=== PATIENT | female | born 1935 | race African-American/Black ===

== ENCOUNTER 2021-03-06 10:05 | Inpatient (IN) | payer MEDICARE, BC, SELFPAY ==
[2021-03-06] VITALS (9 sets, daily range): BP systolic 84–167; BP diastolic 44–87; PULSE 69–98; RESP 15–20; TEMP 26.6–36.6; O2SAT 94–97; BMI 38.7
--- NOTE | ~2021-03-06 | XR_ITS ---
EXAMINATION: XR CHEST CLINICAL INFORMATION: Dyspnea COMPARISON: Previous chest x-ray December 2013 TECHNIQUE: Frontal view of the chest was obtained. FINDINGS: The cardiac and mediastinal contours are stable. Post-CABG changes are seen. Hilar and mediastinal contours are unremarkable. There is question of a mild peripheral increased interstitial markings questionable for interstitial pulmonary edema. The lungs are otherwise clear. There is no pleural effusion or pneumothorax. There are degenerative changes of the spine. XR/XR chest 1V IMPRESSION: Post-CABG changes. Question mild interstitial pulmonary edema.
--- NOTE | ~2021-03-06 | CT_ITS ---
EXAMINATION: CT ABDOMEN AND PELVIS WITH CONTRAST CLINICAL INFORMATION: Bloody stool. Question rectal mass. COMPARISON: None TECHNIQUE: Multidetector volumetric images were obtained from the superior aspect of the liver through the pubic symphysis following administration 85 mL of Omnipaque 350 intravenous contrast. Sagittal and coronal reformatted images were obtained on the technologist's workstation. Oral contrast: Yes This CT examination was performed using dose optimization techniques as appropriate, variously including the following: *Automated exposure control *Adjustment of mA and/or kV according to patient size (this includes techniques or standardized protocols for targeted exams where dose is matched to indication/reason for exam; i.e. extremities or head) *Use of iterative reconstruction technique DLP: 727 mGy-cm FINDINGS: LUNG BASES: There are tiny bilateral pleural effusions. The heart is enlarged. LIVER, GALLBLADDER, AND BILIARY TREE: The liver is normal in size, shape, and attenuation. No focal hepatic lesion or biliary ductal dilatation is present. The gallbladder has been removed. PANCREAS: There is fatty infiltration of the pancreas. SPLEEN: Unremarkable. ADRENAL GLANDS: Unremarkable. KIDNEYS AND URETERS: There is a 3 cm cyst in the lower pole of the right kidney. The kidneys are otherwise unremarkable. BLADDER: Unremarkable. GASTROINTESTINAL TRACT: There is severe diverticulosis of the colon. No evidence of diverticulitis is seen. The small and large bowel is otherwise unremarkable. The appendix is not identified. No rectal mass is appreciated by CT scan. The stomach is not optimally distended. ABDOMINAL WALL: No significant hernia is appreciated. LYMPH NODES: There are small retroperitoneal lymph nodes. No enlarged lymph nodes are seen. VASCULAR: There is evidence of atherosclerotic disease. No aneurysm is seen. PELVIC VISCERA: Uterus appears to have been removed. No pelvic mass is seen. OSSEOUS STRUCTURES: There are degenerative changes of the spine. CT/CT abdomen pelvis w con IMPRESSION: Severe diverticulosis of the colon. No evidence of diverticulitis. No rectal mass appreciated by CT scanning. Right renal cyst.
--- NOTE | 2021-03-06 10:24 | ECG_ITS ---
Test Reason : WEAKNESS Blood Pressure : / mmHG Vent. 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
--- NOTE | 2021-03-06 10:34 | ED_ITS ---
HPI - Weakness General Chief complaint: Weakness Stated complaint: weakness, sob Time Seen by Provider: 03/06/21 10:22 Source: patient and EMS Mode of arrival: EMS Limitations: no limitations History of Present Illness HPI Narrative: 85 yo female hx of afib on xarelto, CAD s/p CABG, HTN, HPL, DM here with weakness and cough productive in nature x 1 week, has a sensation of a dull ache in her chest as well, [facility] to [facility] so EMS was called given 250cc en route, patient notes she has no energy and cannot do her activities, has had intermittent bouts of brbpr but no workup at this t cassie, has not had colonoscopy in years MD Complaint: generalized weakness and lack of energy Onset (ago): week(s) (1) Duration: constant Location: generalized Migration: none Severity: moderate Quality: aching and dull Relieving factors: none Exacerbating factors: movement and exertion Associated symptoms: chest pain, loss of appetite and other (productive cough) Related Data Home Medications Medication Instructions Recorded Confirmed atorvastatin 1 tab PO DAILY 03/06/21 03/06/21 furosemide 1 tab PO BID 03/06/21 03/06/21 metformin 1 tab PO DAILY 03/06/21 03/06/21 metoprolol succinate 1 tab PO DAILY 03/06/21 03/06/21 rivaroxaban [Xarelto] 1 tab PO BEDTIME 03/06/21 03/06/21 sertraline 1 tab PO BID 03/06/21 03/06/21 Allergies Allergy/AdvReac Type Severity Reaction Status Date / Time aspirin [ASA] Allergy Mild HIVES Unverified 07/27/20 18:40 codeine [CODEINE] AdvReac Mild VOMIT Unverified 07/27/20 18:40 Review of Systems Review of Systems: Constitutional : No Weight loss, No Fever, No Chills, pos Fatigue, pos Malaise ENT/Mouth : No sore throat, No Rhinorrhea Eyes: No Eye Pain, No Swelling, No Redness Cardiovascular : pos Chest Pain, pos SOB, No Dyspnea on Exertion, No Orthopnea, pos Edema, No Palpitations Respiratory : pos Cough, pos Sputum, No Wheezing Gastrointestinal : No Nausea, No Vomiting, No Diarrhea, No Constipation, No abdominal Pain, pos Hematochezia, No Melena Genitourinary : No Dysuria, No Urinary Frequency, No Hematuria, Musculoskeletal : No joint pain, No Myalgias, No Joint Swelling Skin : No Skin Lesions, No rash Neuro : pos Weakness, No Numbness, No Dizziness, No Headache Psych : No Anxiety/Panic, No Depression Heme/Lymph: No Bruising, No Bleeding,No Lymphadenopathy Endocrine : No Polyuria, No Polydipsia All other systems reviewed and are negative COUNTS INCLUDE 234 BEDS AT THE [facility] Past Medical History Attestation statement: The following information was validated with the patient. Medical History (Updated 03/06/21 @ 15:57 by Ivanna Martin DO) Atrial fibrillation Coronary artery disease Diabetes mellitus type 1 Hyperlipidemia Hypertension Surgical History (Updated 03/06/21 @ 10:28 by Nayla Swain) H/O coronary artery bypass surgery Social History Social History (Updated 03/06/21 @ 10:36 by Ivanna Martin DO) Smoking Status: Never smoker Use of substances other than those prescribed or required for medical reasons: No Advance Directives: No Advance Directives Information Provided: No Physical Exam Vital Signs: Vital Signs: Last Vital Signs Temp 98 F 03/06/21 15:53 Pulse 74 03/06/21 15:53 Resp 18 03/06/21 15:53 BP 143/65 H 03/06/21 15:53 Pulse Ox 96 03/06/21 15:53 Body Mass Index 38.7 Appearance: Alert. Oriented X3. No acute distress. Eyes: Pupils equal, round and reactive to light. pale conjunctiva ENT: Pharynx normal. Neck: Normal inspection. Neck supple. CVS: Normal heart rate and rhythm. Pulses normal. Respiratory: No respiratory distress. Breath sounds rales noted in bilateral bases but no distress Abdomen: Soft and nontender. Rectal: brown stool but irregularity felt internally Skin: Skin warm and dry. pale skin color. Normal skin turgor. Extremities: piitting 1+ lower extremity edema bilaterally. No calf ttp Neuro: Oriented X 3. No motor deficit. No sensory deficit. Course Course Course Narrative: repeat BP 109/44 will hold significant IVF repeat MAP stable initial BP could be error given irregularity of rectal exam and reports of tenesmus will obtain CT scan to r/o mass H/H in Nov 2020 - hgb 9.1 and Hct 30 has had intremittent bouts of brbpr but no workup edema on CXR, BNP elevated, BP normalized very gentle lasix at this time to help diurese given HCt 29 and hx of CAD s/p CABG will transfuse 1UPRBC then repeat lasix admit for anemia and CHF MDM - Weakness MDM Narrative Medical decision making narrative: 85 yo female s/p CABG x 2 remotely, afib on xarelto, HTN, anemia comes in with weakness, shortness of breath, vague chest pain cannot participate [facility] but was too weak to get up so 911 was called the patient also notes bouts of hematochezia but none this week and has not had a colonoscopy in years, at this time ? worsening anemia, vs CHF as she notes she is short of breath, fatigued and appears more edematous. Will need records from [facility] last visit, labs, IV lasix, EKG, CXR, guiac study possible blood transfusion dispo per results possible admission Lab Data Result diagrams: 03/06/21 11:01 03/06/21 11:01 Labs: Lab Results 03/06/21 03/06/21 03/06/21 Range/Units 11:01 11:01 11:01 WBC 6.2 (4.8-10.8) X10*3/uL RBC 3.53 L (4.20-5.50) X10*6/uL Hgb 8.6 L (12.0-16.0) g/dl Hct 29.2 L (37-47) % MCV 82.7 (80-98) fL MCH 24.4 L (27.0-33.0) pg MCHC 29.5 L (31.0-35.0) g/dl RDW 17.0 H (11.0-16.0) % Plt Count 243 (160-400) X10*3/uL MPV 8.6 L (9.4-12.3) fL Immature Gran % (Auto) 0.5 H (0.0-0.4) % Neut % (Auto) 67.3 (45-73) % Lymph % (Auto) 23.1 (20-40) % [place] % (Auto) 6.7 (2-11) % Eos % (Auto) 2.1 (0-4) % Baso % (Auto) 0.3 (0-2) % Lymph # (Auto) 1.4 (1.2-4.9) X10*3/uL [place] # (Auto) 0.4 (0.1-1.2) X10*3/uL Eos # (Auto) 0.1 (0.0-0.4) X10*3/uL Baso # (Auto) 0.0 (0.0-0.2) X10*3/uL Abs Immat Gran (auto) 0.03 (0.00-0.03) X10*3/uL Absolute Neuts (auto) 4.1 (2.0-8.3) X10*3/uL Absolute Nucleated RBC 0.000 (0.0-0.012) X10*3/uL Nucleated RBC % (auto) 0.0 (0.0-0.2) /100WBC PT 15.3 H (10.8-13.0) SEC INR 1.3 H (0.9-1.1) APTT 36.6 (24.1-38.0) SEC Sodium 142 (135-145) mmol/L Potassium 3.4 (3.3-5.1) mmol/L Chloride 108 (96-108) mmol/L Carbon Dioxide 24 (22-29) mmol/L Anion Gap 13 (12-20) BUN 13 (9-16) mg/dL Creatinine 0.79 (0.5-1.4) mg/dL Estim Creat Clear Calc 48.6 Estimated GFR > 60 Random Glucose 127 H (60-115) mg/dL Calcium 8.7 (8.4-10.2) mg/dL Magnesium 1.8 (1.6-2.6) mg/dL Total Bilirubin 0.5 (0.0-1.0) mg/dL Direct Bilirubin 0.3 (0.0-0.5) mg/dL AST 50 H (5-31) U/L ALT 22 (0-31) U/L Alkaline Phosphatase 111 (39-117) U/L Troponin I High Sens (<3.5-17.0) ng/L B-Natriuretic Peptide (<100) pg/mL Total Protein 7.4 (6.5-8.0) g/dL Albumin 3.9 (3.5-5.0) g/dL Lipase 11 (8-78) U/L Stool Occult Blood (NEGATIVE) COVID-19 ([facility]) (Negative) COVID-19 Clin [facility] Blood Type Antibody Screen Crossmatch 03/06/21 03/06/21 03/06/21 Range/Units 11:01 11:01 11:02 WBC (4.8-10.8) X10*3/uL RBC (4.20-5.50) X10*6/uL Hgb (12.0-16.0) g/dl Hct (37-47) % MCV (80-98) fL MCH (27.0-33.0) pg MCHC (31.0-35.0) g/dl RDW (11.0-16.0) % Plt Count (160-400) X10*3/uL MPV (9.4-12.3) fL Immature Gran % (Auto) (0.0-0.4) % Neut % (Auto) (45-73) % Lymph % (Auto) (20-40) % [place] % (Auto) (2-11) % Eos % (Auto) (0-4) % Baso % (Auto) (0-2) % Lymph # (Auto) (1.2-4.9) X10*3/uL [place] # (Auto) (0.1-1.2) X10*3/uL Eos # (Auto) (0.0-0.4) X10*3/uL Baso # (Auto) (0.0-0.2) X10*3/uL Abs Immat Gran (auto) (0.00-0.03) X10*3/uL Absolute Neuts (auto) (2.0-8.3) X10*3/uL Absolute Nucleated RBC (0.0-0.012) X10*3/uL Nucleated RBC % (auto) (0.0-0.2) /100WBC PT (10.8-13.0) SEC INR (0.9-1.1) APTT (24.1-38.0) SEC Sodium (135-145) mmol/L Potassium (3.3-5.1) mmol/L Chloride (96-108) mmol/L Carbon Dioxide (22-29) mmol/L Anion Gap (12-20) BUN (9-16) mg/dL Creatinine (0.5-1.4) mg/dL Estim Creat Clear Calc Estimated GFR Random Glucose (60-115) mg/dL Calcium (8.4-10.2) mg/dL Magnesium (1.6-2.6) mg/dL Total Bilirubin (0.0-1.0) mg/dL Direct Bilirubin (0.0-0.5) mg/dL AST (5-31) U/L ALT (0-31) U/L Alkaline Phosphatase (39-117) U/L Troponin I High Sens 6.2 (<3.5-17.0) ng/L B-Natriuretic Peptide 596 H (<100) pg/mL Total Protein (6.5-8.0) g/dL Albumin (3.5-5.0) g/dL Lipase (8-78) U/L Stool Occult Blood (NEGATIVE) COVID-19 ([facility]IAN) Negative (Negative) COVID-19 Clin Com See Note Blood Type O Positive Antibody Screen NEGATIVE Crossmatch See Detail 03/06/21 Range/Units 11:44 WBC (4.8-10.8) X10*3/uL RBC (4.20-5.50) X10*6/uL Hgb (12.0-16.0) g/dl Hct (37-47) % MCV (80-98) fL MCH (27.0-33.0) pg MCHC (31.0-35.0) g/dl RDW (11.0-16.0) % Plt Count (160-400) X10*3/uL MPV (9.4-12.3) fL Immature Gran % (Auto) (0.0-0.4) % Neut % (Auto) (45-73) % Lymph % (Auto) (20-40) % [place] % (Auto) (2-11) % Eos % (Auto) (0-4) % Baso % (Auto) (0-2) % Lymph # (Auto) (1.2-4.9) X10*3/uL [place] # (Auto) (0.1-1.2) X10*3/uL Eos # (Auto) (0.0-0.4) X10*3/uL Baso # (Auto) (0.0-0.2) X10*3/uL Abs Immat Gran (auto) (0.00-0.03) X10*3/uL Absolute Neuts (auto) (2.0-8.3) X10*3/uL Absolute Nucleated RBC (0.0-0.012) X10*3/uL Nucleated RBC % (auto) (0.0-0.2) /100WBC PT (10.8-13.0) SEC INR (0.9-1.1) APTT (24.1-38.0) SEC Sodium (135-145) mmol/L Potassium (3.3-5.1) mmol/L Chloride (96-108) mmol/L Carbon Dioxide (22-29) mmol/L Anion Gap (12-20) BUN (9-16) mg/dL Creatinine (0.5-1.4) mg/dL Estim Creat Clear Calc Estimated GFR Random Glucose (60-115) mg/dL Calcium (8.4-10.2) mg/dL Magnesium (1.6-2.6) mg/dL Total Bilirubin (0.0-1.0) mg/dL Direct Bilirubin (0.0-0.5) mg/dL AST (5-31) U/L ALT (0-31) U/L Alkaline Phosphatase (39-117) U/L Troponin I High Sens (<3.5-17.0) ng/L B-Natriuretic Peptide (<100) pg/mL Total Protein (6.5-8.0) g/dL Albumin (3.5-5.0) g/dL Lipase (8-78) U/L Stool Occult Blood NEGATIVE (NEGATIVE) COVID-19 ([facility]) (Negative) COVID-19 Clin Com Blood Type Antibody Screen Crossmatch ECG Data Attestation: I personally reviewed and interpreted this ECG as follows: ECG interpretation date: 03/06/21 ECG interpretation time: 10:49 Interpretation: Rate: 70s Rhythm: aflutter Redford: normal Normal P waves. Normal GELY. Normal QRS complex. ST T wave : nonspecific, no GLENN qTC: prolonged prior studies: artifact noted no acute ischemia The study has been interpreted contemporaneously by me. . Discharge Plan Discharge Clinical Impression: Weakness Anemia Qualifiers: Anemia type: other cause Other causes of anemia: other cause, not classified Qualified Code(s): D64.89 - Other specified anemias CHF (congestive heart failure) Qualifiers: Heart failure type: other Qualified Code(s): I50.9 - Heart failure, unspecified Patient Disposition: Admitted As Inpatient
[2021-03-06 11:08] LABS: MANUAL DIFF FLAG NO
[2021-03-06] MEDS: 0.9 % Sodium Chloride 500 ML IV (11:08)
[2021-03-06 11:09] LABS: Basophils Percent Auto 0.3 % (0-2); Eosinophils Absolute Auto 0.1 X10*3/uL (0.0-0.4); Eosinophils Percent Auto 2.1 % (0-4); Hematocrit 29.2 % (37-47); Hemoglobin 8.6 g/dl (12.0-16.0); Imm Gran Abs Auto 0.03 X10*3/uL (0.00-0.03); Imm Gran Pct Auto 0.5 % (0.0-0.4); Lymphocytes Absolute Auto 1.4 X10*3/uL (1.2-4.9); Lymphocytes Percent Auto 23.1 % (20-40); Mean Corpuscular HGB Conc 29.5 g/dl (31.0-35.0); Mean Corpuscular Hemoglobin 24.4 pg (27.0-33.0); Mean Corpuscular Volume 82.7 fL (80-98); Mean Platelet Volume 8.6 fL (9.4-12.3); Monocytes Absolute Auto 0.4 X10*3/uL (0.1-1.2); Monocytes Percent Auto 6.7 % (2-11); Neutrophils Absolute Auto 4.1 X10*3/uL (2.0-8.3); Neutrophils Percent Auto 67.3 % (45-73); Platelet Count 243 X10*3/uL (160-400); Red Blood Count 3.53 X10*6/uL (4.20-5.50); White Blood Count 6.2 X10*3/uL (4.8-10.8)
[2021-03-06 11:18] LABS: INTERNATIONAL NORM RATIO 1.3 (0.9-1.1); Prothrombin Time 15.3 SEC (10.8-13.0)
[2021-03-06 11:20] LABS: Partial Thromboplastin Time 36.6 SEC (24.1-38.0)
[2021-03-06 11:23] LABS: COVID-19 Test Negative (Negative)
[2021-03-06 11:41] LABS: Alanine Aminotransferase 22 U/L (0-31); Albumin Level 3.9 g/dL (3.5-5.0); Alkaline Phosphatase 111 U/L (39-117); Anion Gap 13 (12-20); Aspartate Amino Transferase 50 U/L (5-31); Bilirubin Direct 0.3 mg/dL (0.0-0.5); Bilirubin Total 0.5 mg/dL (0.0-1.0); Blood Urea Nitrogen 13 mg/dL (9-16); Calcium 8.7 mg/dL (8.4-10.2); Carbon Dioxide 24 mmol/L (22-29); Chloride 108 mmol/L (96-108); Creatinine Clr Calc Pharmacy 48.6; Estimated Glomerular Filt Rate > 60; Glucose Random 127 mg/dL (60-115); Lipase 11 U/L (8-78); Magnesium 1.8 mg/dL (1.6-2.6); Potassium 3.4 mmol/L (3.3-5.1); Sodium 142 mmol/L (135-145); Total Protein 7.4 g/dL (6.5-8.0)
[2021-03-06 11:47] LABS: Troponin-I High Sensitivity 6.2 ng/L (<3.5-17.0)
[2021-03-06 11:50] LABS: OBS Int Ctl Valid YES; OBS1 NEGATIVE (NEGATIVE)
--- NOTE | 2021-03-06 12:10 | PC.NURSE ---
PER DR RUSH FLUIDS HELD, PT ONLY RECVD ~50 CC PRIOR TO STOPPING INFUSION.
[2021-03-06 12:26] LABS: B Type Natriuretic Peptide 596 pg/mL (<100)
[2021-03-06] MEDS: iohexoL 350 MG/ML 100 ML INFUS..BTL IV (14:39)
--- NOTE | 2021-03-06 16:52 | P.EN_ITS ---
Event Note Date of Service: 03/06/21 Event Note: Attending Attestation: Patient seen and examined independently and I was present during singh portion of E/M service. Agree with Alexandra Glynn NP's history, physical, assessment, and plan. In brief, this is a 85 yo F with a history of CAD - s/p CABG, A.fib/flutter on Xarelto, HTN, HLD, ? DM (pt reports pre-diabetes) who presents to the hospital with multiple complaints. She went to the [facility] today (where she goes for swimming) but she was unable to due to fatigue and subsequently EMS was called. She reports that for the last 2 weeks she has had progressive generalized weakness and malaise. She reports progressive SOB and intermittent chest pain. She reports intermittent rectal bleeding. She reports she was seen by her manager cardiology at some point in the last month and at that point was told to check her BP daily but otherwise told to follow up with them in 6 months. Currently, she reports that she is hungry. She denies active chest pain. She does endorse trouble breathing. She denies any current rectal bleeding. Her ED work up reveals an elevated BNP, low h/h and a cxr suggestive of pulmonary edema. HS trop-I 11 and EKG showed A. flutter. She was a given a dose of IV lasix, 1 unit PRBC ordered and admission was requested. A/P 85 yo F with multiple medical problems including CAGB, A. flutter on Xarelto, HTN, HLD who presents with progressive generalized weakness, sob. She is found to have an elevated BNP and low h/h. Symptoms maybe related to symptomatic anemia vs acute CHF. (baseline EF not known). Transfuse 1 unit PRBC. Obtain [facility] records for recent echo, if not order on here. IV lasix post tranfusion. If symptoms not improved after PRBC, may need further work up. In regards to her reported rectal bleeding -- daughter reports last colonoscopy was in the last several years and at that time, no further colonoscopic evals were needed. May need GI evaluation -- inpatient vs outpatient to be determined on her clinical course.
--- NOTE | 2021-03-06 17:09 | PC.NURSE ---
INCORRECT ORAL TEMP OF 79.9 RECORDED FOR 15 MIN VITALS AFTER INITIATION OF BLOOD TRANSFUSION, ORAL TEMP CORRECTLY DOCUMENTED AFTER OF 97.9
--- NOTE | 2021-03-06 17:18 | PM.IMHP ---
History of Present Illness Date of Service: 03/06/21 <Samantha Glynn NP - Last Filed: 03/06/21 17:43> Chief Complaint: Shortness of breath <Samantha Glynn NP - Last Filed: 03/06/21 17:43> 85 year old women presenting with 2 weeks of worsening shortness of breath. She has also been more lethargic and tired. She reports that she normally is very active and as a matter of fact she was swimming at the [facility] today when she felt unwell and 911 was called. She denied fever, chills, nausea, vomiting,diarrhea, recent illness . She did report cough with yellow phlegm and chills ocassionally. She has a history of CAD with multiple bypass surgeries and her last admission was at [facility] in 11/2020. She was admitted for chest pain and Bradycardia. She had some abnormalities in her EKG and nuclear stress test was performed and showed no evidence of ischemia. her beta-helen was stopped during the admission and subsequently restarted. She has been on Xarelto and aspirin and there was concern for bleeding. In the ER her hemoglobin was low at 8.6 and 29.2. Hemoglobin and hematocrit from the [facility] admission was 9.1 and 30.2. Stool occult negative. Abdominal CT showed severe diverticulosis without diverticulitis. Chest x-ray showed mild interstitial pulmonary edema. She was not noted to be hypoxic. Blood pressure was mildly elevated 154/71. She was given IV Lasix and half a L of IV fluids. She will be admitted for further management and treatment of symptomatic anemia and mild congestive heart failure. <Samantha Glynn NP - Last Filed: 03/06/21 17:43> Review of Systems Review of Systems: Denies any recent fever chills or decrease in appetite respiratory denies any shortness of breath coverage production cardiovascular is adjustment of any PND or edema gastrointestinal denies any dysphagia abdominal pain nausea vomiting or diarrhea genitourinary denies any dysuria frequency or hematuria musculoskeletal denies any joint pain or swelling neuropsych denies any weakness or seizures all other systems reviewed are negative <Samantha Glynn NP - Last Filed: 03/06/21 17:43> [facility] Medical History: Medical History Atrial fibrillation Coronary artery disease Diabetes mellitus type 1 Hyperlipidemia Hypertension <Samantha Glynn NP - Last Filed: 03/06/21 17:43> Surgical History: Surgical History H/O coronary artery bypass surgery <Samantha Glynn NP - Last Filed: 03/06/21 17:43> Social History: Social History Household Members: Family Housing: House Do you presently have visiting nurse or other home services: No Alcohol intake: never Smoking Status: Never smoker Use of substances other than those prescribed or required for medical reasons: No Currently Displaying Signs/Symptoms of Drug Intoxication Withdrawal: No Have you been hit, kicked, punched, or otherwise hurt by someone within the past year? If so, by whom?: No Do you feel safe in your current relationship?: No Current Relationship Is there a partner from a previous relationship who is making you feel unsafe now?: No Are you made to feel afraid or neglected: No Advance Directives: No Advance Directives Information Provided: No Do you have thoughts of harming others: None Do you have a plan to hurt others: No Plan Recently lost weight without trying: No <Samantha Glynn NP - Last Filed: 03/06/21 17:43> Meds Allergies/Adverse reactions: Allergies Allergy/AdvReac Type Severity Reaction Status Date / Time aspirin [ASA] Allergy Mild HIVES Unverified 07/27/20 18:40 codeine [CODEINE] AdvReac Mild VOMIT Unverified 07/27/20 18:40 <Samantha Glynn NP - Last Filed: 03/06/21 17:43> Active Medications: Current Medications Generic Name Dose Route Start Last Admin Trade Name Freq PRN Reason Stop Dose Admin Acetaminophen 650 mg 03/06/21 17:15 Acetaminophen 325 Mg Tablet PO Q6H PRN Pain, Mild (Pain Scale 1-3) Atorvastatin Calcium 80 mg 03/07/21 09:00 Atorvastatin Calcium 80 Mg Tablet PO DAILY [facility] Metoprolol Succinate 100 mg 03/07/21 09:00 Metoprolol Succinate Er 100 Mg Tab.Er.24h PO DAILY OTONIEL Protocol Ondansetron HCl 4 mg 03/06/21 17:15 Ondansetron Hcl 4 Mg/2 Ml Vial IVPUSH Q8H PRN Nausea and Vomiting Pharmacy Consult 1 each 03/06/21 15:44 Consult Rx Perform Med Rec MISCELLANE ONCE PRN Consult order Rivaroxaban 20 mg 03/06/21 21:00 Rivaroxaban 20 Mg Tablet PO BEDTIME OTONIEL Sertraline HCl 100 mg 03/06/21 21:00 Sertraline Hcl 100 Mg Tablet PO BID [facility] Sodium Chloride 3 ml 03/07/21 00:00 0.9 % Sodium Chloride Flush 3 Ml Syringe IVFLUSH QSHIFT [facility] <Samantha Glynn NP - Last Filed: 03/06/21 17:43> Home medications: Home Medications Medication Instructions Recorded Confirmed Last Taken Type atorvastatin 1 tab PO DAILY 03/06/21 03/06/21 03/05/21 History furosemide 1 tab PO BID 03/06/21 03/06/21 03/05/21 History metformin 1 tab PO DAILY 03/06/21 03/06/21 03/05/21 History metoprolol succinate 1 tab PO DAILY 03/06/21 03/06/21 03/05/21 History rivaroxaban [Xarelto] 1 tab PO BEDTIME 03/06/21 03/06/21 03/05/21 History sertraline 1 tab PO BID 03/06/21 03/06/21 03/05/21 History <Samantha Glynn NP - Last Filed: 03/06/21 17:43> Physical Exam Vital Signs and Narrative: Vital Signs: Last Vital Signs Temp 79.9 F L 03/06/21 17:07 Pulse 79 03/06/21 17:07 Resp 18 03/06/21 17:07 BP 154/71 H 03/06/21 17:07 Pulse Ox 96 03/06/21 15:53 Body Mass Index 38.7 <Samantha Glynn NP - Last Filed: 03/06/21 17:43> Appearing in no acute distress head is normocephalic atraumatic eyes pupils are PERRLA sclera is anicteric mouth throat mucous membranes are intact and moist neck is supple no lymphadenopathy, no JVD noted lung sounds normal expansion heart IRIR positive bowel sounds, abdomen is soft, nontender neuro patient is alert x3, no focal deficits <Samantha Glynn NP - Last Filed: 03/06/21 17:43> Results Labs CBC and Chem 7: : 03/07/21 06:21 03/07/21 06:21 <Samantha Glynn NP - Last Filed: 03/06/21 17:43> Labs: Laboratory Results - last 24 hr 03/06/21 03/06/21 03/06/21 11:01 11:01 11:01 MCV 82.7 MCH 24.4 L MCHC 29.5 L RDW 17.0 H Plt Count 243 MPV 8.6 L Immature Gran % (Auto) 0.5 H Neut % (Auto) 67.3 Lymph % (Auto) 23.1 [place] % (Auto) 6.7 Eos % (Auto) 2.1 Baso % (Auto) 0.3 Lymph # (Auto) 1.4 [place] # (Auto) 0.4 Eos # (Auto) 0.1 Baso # (Auto) 0.0 Abs Immat Gran (auto) 0.03 Absolute Neuts (auto) 4.1 Absolute Nucleated RBC 0.000 Nucleated RBC % (auto) 0.0 PT 15.3 H INR 1.3 H APTT 36.6 Anion Gap 13 Estim Creat Clear Calc 48.6 Estimated GFR > 60 Random Glucose 127 H Calcium 8.7 Magnesium 1.8 Total Bilirubin 0.5 Direct Bilirubin 0.3 AST 50 H ALT 22 Alkaline Phosphatase 111 Troponin I High Sens B-Natriuretic Peptide Total Protein 7.4 Albumin 3.9 Lipase 11 Stool Occult Blood COVID-19 ([facility]) COVID-[employer] Clin Com Blood Type Antibody Screen Crossmatch 03/06/21 03/06/21 03/06/21 11:01 11:01 11:02 MCV MCH MCHC RDW Plt Count MPV Immature Gran % (Auto) Neut % (Auto) Lymph % (Auto) [place] % (Auto) Eos % (Auto) Baso % (Auto) Lymph # (Auto) [place] # (Auto) Eos # (Auto) Baso # (Auto) Abs Immat Gran (auto) Absolute Neuts (auto) Absolute Nucleated RBC Nucleated RBC % (auto) PT INR APTT Anion Gap Estim Creat Clear Calc Estimated GFR Random Glucose Calcium Magnesium Total Bilirubin Direct Bilirubin AST ALT Alkaline Phosphatase Troponin I High Sens 6.2 B-Natriuretic Peptide 596 H Total Protein Albumin Lipase Stool Occult Blood COVID-19 ([facility]) Negative COVID-[employer] Clin Com See Note Blood Type O Positive Antibody Screen NEGATIVE Crossmatch See Detail 03/06/21 11:44 MCV MCH MCHC RDW Plt Count MPV Immature Gran % (Auto) Neut % (Auto) Lymph % (Auto) [place] % (Auto) Eos % (Auto) Baso % (Auto) Lymph # (Auto) [place] # (Auto) Eos # (Auto) Baso # (Auto) Abs Immat Gran (auto) Absolute Neuts (auto) Absolute Nucleated RBC Nucleated RBC % (auto) PT INR APTT Anion Gap Estim Creat Clear Calc Estimated GFR Random Glucose Calcium Magnesium Total Bilirubin Direct Bilirubin AST ALT Alkaline Phosphatase Troponin I High Sens B-Natriuretic Peptide Total Protein Albumin Lipase Stool Occult Blood NEGATIVE COVID-19 ([facility]) COVID-19 Clin Com Blood Type Antibody Screen Crossmatch <Samantha Glynn NP - Last Filed: 03/06/21 17:43> Imaging Radiologist's Impressions: Impressions Chest X-Ray 03/06/21 10:24 IMPRESSION: Post-CABG changes. Question mild interstitial pulmonary edema. Abdomen/Pelvis CT 03/06/21 12:00 IMPRESSION: Severe diverticulosis of the colon. No evidence of diverticulitis. No rectal mass appreciated by CT scanning. Right renal cyst. <Samantha Glynn NP - Last Filed: 03/06/21 17:43> Assessment and Plan (1) CHF (congestive heart failure): Qualifiers: Heart failure type: other Qualified Code(s): I50.9 - Heart failure, unspecified <Samantha Glynn NP - Last Filed: 03/06/21 17:43> Status: Acute <Samantha Glynn NP - Last Filed: 03/06/21 17:43> (2) Anemia: Qualifiers: Anemia type: other cause Other causes of anemia: other cause, not classified Qualified Code(s): D64.89 - Other specified anemias <Samantha Glynn NP - Last Filed: 03/06/21 17:43> Status: Acute <Samantha Glynn NP - Last Filed: 03/06/21 17:43> 85-year-old woman admitted with mild CHF and symptomatic anemia. Patient has a history of coronary artery disease with multiple bypasses. Congestive heart failure. No recent echocardiogram noted. Mild symptoms, no hypoxia -IV lasix -Cardiology consultation -Daily weights, BNP -follow I&O Symptomatic anemia. Lethargy and dyspnea. Hx CAD. -Bryologist and screen -1 unit PRBC ordered, -trend HH CAD. -Continue BB and statin Diabetes. -Sliding scale, ADA diet Afib/flutter BB, hold xarelto DVT prophylaxis with Mechanical compression boots Attending: Dr. Mccray <Samantha Glynn NP - Last Filed: 03/06/21 17:43>
[2021-03-06] MEDS: Furosemide 20 MG/2 ML VIAL IVPUSH (19:52)
[2021-03-06 20:23] LABS: Troponin-I High Sensitivity 7.1 ng/L (<3.5-17.0)
[2021-03-06] MEDS: Acetaminophen 325 MG TABLET 650 MG PO (21:50)
[2021-03-06] MEDS: Sertraline HCL 100 MG TABLET PO (21:50)
[2021-03-06] MEDS: Rivaroxaban 20 MG TABLET PO (23:21)
[2021-03-07] VITALS (10 sets, daily range): BP systolic 111–151; BP diastolic 56–98; PULSE 66–112; RESP 16–20; TEMP 36.1–37.2; O2SAT 92–97
[2021-03-07] MEDS: 0.9 % Sodium Chloride Flush 3 ML SYRINGE IVFLUSH ×4 (00:38→20:52)
[2021-03-07] MEDS: Furosemide 20 MG/2 ML VIAL IVPUSH ×3 (02:03→18:01)
[2021-03-07 03:08] LABS: Glucose Urine UA NEG (NEG); Leukocyte Esterase Urine NEG (NEG); Nitrite Urine NEG (NEG); PH 6.5 (5.0-8.0); Urine Blood NEG (NEG); Urine Ketones NEG (NEG); Urine Protein NEG (NEG-TRACE)
[2021-03-07 03:09] LABS: Appearance Urine CLEAR; Color Urine STRAW; UACC Culture Trigger NO
[2021-03-07] MEDS: Acetaminophen 325 MG TABLET 650 MG PO ×3 (06:14→20:58)
[2021-03-07 07:16] LABS: MANUAL DIFF FLAG NO
[2021-03-07 07:23] LABS: Basophils Percent Auto 0.3 % (0-2); Eosinophils Absolute Auto 0.1 X10*3/uL (0.0-0.4); Eosinophils Percent Auto 1.7 % (0-4); Hematocrit 32.2 % (37-47); Hemoglobin 9.8 g/dl (12.0-16.0); Imm Gran Abs Auto 0.02 X10*3/uL (0.00-0.03); Imm Gran Pct Auto 0.3 % (0.0-0.4); Lymphocytes Absolute Auto 1.8 X10*3/uL (1.2-4.9); Lymphocytes Percent Auto 25.8 % (20-40); Mean Corpuscular HGB Conc 30.4 g/dl (31.0-35.0); Mean Corpuscular Hemoglobin 25.1 pg (27.0-33.0); Mean Corpuscular Volume 82.4 fL (80-98); Mean Platelet Volume 8.7 fL (9.4-12.3); Monocytes Absolute Auto 0.5 X10*3/uL (0.1-1.2); Monocytes Percent Auto 7.3 % (2-11); Neutrophils Absolute Auto 4.4 X10*3/uL (2.0-8.3); Neutrophils Percent Auto 64.6 % (45-73); Platelet Count 268 X10*3/uL (160-400); Red Blood Count 3.91 X10*6/uL (4.20-5.50); Red Cell Distribution Width 16.6 % (11.0-16.0); White Blood Count 6.9 X10*3/uL (4.8-10.8)
[2021-03-07 07:46] LABS: Anion Gap 14 (12-20); Blood Urea Nitrogen 8 mg/dL (9-16); Carbon Dioxide 25 mmol/L (22-29); Chloride 106 mmol/L (96-108); Creatinine Clr Calc Pharmacy 54.1; Estimated Glomerular Filt Rate > 60; Glucose Random 127 mg/dL (60-115); Potassium 3.1 mmol/L (3.3-5.1); Sodium 142 mmol/L (135-145)
[2021-03-07 07:48] LABS: B Type Natriuretic Peptide 887 pg/mL (<100)
[2021-03-07] MEDS: Atorvastatin Calcium 80 MG TABLET PO (08:13)
[2021-03-07] MEDS: Metoprolol Succinate ER 100 MG TAB.ER.24H PO (08:14)
[2021-03-07] MEDS: Sertraline HCL 100 MG TABLET PO ×2 (08:19→20:52)
--- NOTE | 2021-03-07 09:30 | CA_ITS ---
Transthoracic Echocardiogram Patient (Last, First, Middle): Drew Quintana, Gender: Female Date of : 1935 Age: 85 Procedure Date: 03/07/2021 Procedure Type: Transthoracic Echocardiogram Location: [facility] [place] Height: 147.32 cm Weight: 83.92 kg BSA: 1.76 m2 Heart Rate: bpm BP: 143 / 88 mmHg It Director: RILEY Cartagena MD: Samantha Glynn NP Apple Picking Supervisor: Tyler Cameron MD Symptoms: chf Study Quality: Fair ECG Rhythm: Atrial flutter Conclusions: - 1. Mildly reduced LV systolic function with pseudonormal filling pattern 2. Moderately dilated left atrium 3. Mild mitral regurgitation 4. Mildly elevated right ventricular systolic pressure 5. No gross pericardial effusion Findings Left Ventricle Normal left ventricular cavity size. There is normal left ventricular wall thickness. The left ventricular systolic function is mildly decreased. The visually estimated ejection fraction is between 45-50%. Spectral Doppler is indicative of a pseudonormal filling pattern. Right Ventricle Mildly increased right ventricular cavity size. There is low normal right ventricular systolic function. Atria The left atrium is moderately dilated. There is lipomatous hypertrophy of the interatrial septum. There is no evidence of interatrial shunt. The right atrium is mildly dilated. Aortic Valve Normal aortic valve structure and function. There is no aortic valve stenosis. There is no aortic valve regurgitation. Mitral Valve Normal mitral valve structure and function. There is moderate anterior mitral leaflet thickening. There is moderate mitral annular calcification. There is mild mitral valve regurgitation. There is no mitral valve stenosis. Pulmonic Valve The pulmonic valve was not well visualized. Tricuspid Valve Likely normal tricuspid valve structure and function. There is mild tricuspid valve regurgitation. Mild pulmonary hypertension is present. Great Vessels All visible segments of the aorta are normal in size. The pulmonary artery was not well visualized. Venous The inferior vena cava is normal in size and collapses greater than 50% with inspiration. Pericardium/Pleural There is no evidence of pericardial effusion. Prior Study Comparison No prior study available for comparison. Measurements 2D Linear Measurements RVIDd: 3.37 RVIDd Index: 1.91 IVSd: 0.83 0.6-0.9/0.6-1.0 cm LVIDd: 4.77 3.9-5.3/4.2-5.9 cm LVIDd Index: 2.71 2.4-3.2/2.2-3.1 cm/m2 LVIDs: 3.69 2.0-3.6 cm LVPWd: 1.01 0.7-1.1 cm Ao Root: 3.10 2.1-3.5 cm LA Diam: 3.30 2.7-3.8/3.0-4.0 cm LAIDs Index: 1.88 1.5-2.3 cm/m2 LV Mass: 187.89 67-162/88-224 g LV Mass Index: 106.76 43-95/49-115 g/m2 LVOT Diam: 2.00 3.0+(-)1.3 cm 2D Systolic Function EF 4C: 53.80 >55% EF 2C: 48.00 >55% EF BiP: 51.90 >55% Mitral Valve MV Pk E: 1.13 MV PK A: 0.62 MV Decel Time: 150.00 E/A: 1.80 E'Lateral: 13.20 E'Medial: 5.87 E/E' Med: 19.30 E/E' Lat: 8.60 Aortic Valve AoV Pk Adam: 1.26 AoV Mn Adam: 0.87 AoV VTI: 0.25 AoV Pk Grad: 6.00 Aov Mn Grad: 3.00 RADHA Cont.VTI: 2.86 LVOT LVOT Pk Adam: 1.16 LVOT Mn Adam: 0.81 LVOT VTI: 0.23 LVOT Pk Grad: 5.00 LVOT Mn Grad: 3.00 LVOT Diam: 2.00 LVOT Area: 3.14 Diastolic Function MV Pk E: 1.13 MV Pk A: 0.62 E/A: 1.80 E'Medial: 5.87 E/E' Med: 19.30 E' Laterial: 13.20 E/E' Lat: 8.60 Tricuspid Valve TR Pk Adam: 3.12 TR Pk Grad: 39.00 RA Press: 3.00 RVSP: 42.00 Great Vessels Aorta Ao Root-2D: 3.10 2.0-3.7 cm Ao Asc: 3.30 2.1-3.4 cm Ao Arch: 2.70 Updated in Other Vendor System with Status of Final Tyler Cameron MD electronically signed on 03/07/2021 1:22:34 PM with status of Final
--- NOTE | 2021-03-07 10:49 | PM.CNCAR ---
History of Present Illness History of Present Illness Date of Service: 03/07/21 Requesting physician: Samantha Glynn Consult reason: congestive heart failure and other (Atrial flutter) Chief complaint: CHF, anemia Narrative: We were asked to see Drew in cardiology consultation today for congestive heart failure as well as atrial flutter. She is a pleasant 85-year-old woman with complicated past history including coronary artery bypass grafting x2, 1st in 1986 and subsequently [id number] in [facility]. Hypertension, paroxysmal atrial flutter on chronic anticoagulation with Xarelto. No history of congestive heart failure. Patient says over the last 2 weeks she has been noticing increasing shortness of breath and fatigue and tiredness. While swimming yesterday she got extremely tired and fatigue and decided to come to the hospital for further evaluation. In the hospital she was noted to have elevated BNP, chest x-ray findings consistent with interstitial pulmonary edema and significant anemia. Reviewing her [facility] records from November when she was admitted with chest pain was noted that she had bradycardia and atypical chest pain with workup at that time not showing any significant myocardial ischemia and was advised to be managed medically. At that time she was noted to be in sinus rhythm. On admission this time she is noted to be in atrial flutter with 3 is to 1 conduction with controlled ventricular response. She had seen a tool and die machinist 2 weeks ago, do not have a copy of the EKG from that visit if it was performed. Patient says intermittently she does notice some bleeding in stools. However she does not have any major melena or significant bleeding. Her stool occult blood is negative. She was transfused 1 unit yesterday. She continues to feel fatigued and tired. She is denying any significant shortness of breath. She says she has been diuresing well with IV Lasix. However BNP has increased today. Review of Systems Constitutional: Constitutional: Denies chills, Denies fever(s), Reports lethargy and Reports weakness Cardiovascular: Cardiovascular: Denies chest pain, Reports pedal edema, Denies lightheadedness, Denies Loss of Consciousness, Denies palpitations and Reports dyspnea on exertion Respiratory: Respiratory: Reports no additional respiratory complaints and Reports dyspnea on exertion Gastrointestinal: Gastrointestinal: Reports no additional gastrointestinal complaints Neurologic: Reports system reviewed and no additional complaints, except as documented and Reports weakness Psychiatric: Psychiatric: Reports no additional psychiatric complaints Endocrine: Endocrine: Reports no additional endocrine complaints and Denies palpitations Hematologic/Lymphatic: Hematologic/Lymphatic: Reports no additional hematologic/lymphatic complaints [facility] Past Medical History Medical History Atrial fibrillation Coronary artery disease Diabetes mellitus type 1 Hyperlipidemia Hypertension Surgical History Surgical History H/O coronary artery bypass surgery Social History Social History Household Members: Family Housing: House Do you presently have visiting nurse or other home services: No Alcohol intake: never Smoking Status: Never smoker Use of substances other than those prescribed or required for medical reasons: No Currently Displaying Signs/Symptoms of Drug Intoxication Withdrawal: No Have you been hit, kicked, punched, or otherwise hurt by someone within the past year? If so, by whom?: No Do you feel safe in your current relationship?: No Current Relationship Is there a partner from a previous relationship who is making you feel unsafe now?: No Are you made to feel afraid or neglected: No Advance Directives: No Advance Directives Information Provided: No Do you have thoughts of harming others: None Do you have a plan to hurt others: No Plan Recently lost weight without trying: No Meds Allergies Allergy/AdvReac Type Severity Reaction Status Date / Time aspirin [ASA] Allergy Mild HIVES Unverified 07/27/20 18:40 codeine [CODEINE] AdvReac Mild VOMIT Unverified 07/27/20 18:40 Active Medications: Current Medications Generic Name Dose Route Start Last Admin Trade Name Ludivina PRN Reason Stop Dose Admin Acetaminophen 650 mg 03/06/21 17:15 03/07/21 06:14 Acetaminophen 325 Mg Tablet PO 650 mg Q6H PRN Administration Pain, Mild (Pain Scale 1-3) Atorvastatin Calcium 80 mg 03/07/21 09:00 03/07/21 08:13 Atorvastatin Calcium 80 Mg Tablet PO 80 mg DAILY OTONIEL Administration Furosemide 20 mg 03/07/21 00:39 03/07/21 08:14 Furosemide 20 Mg/2 Ml Vial IVPUSH 20 mg BID@0900,1800 OTONIEL Administration Protocol Metoprolol Succinate 100 mg 03/07/21 09:00 03/07/21 08:14 Metoprolol Succinate Er 100 Mg Tab.Er.24h PO 100 mg DAILY OTONIEL Administration Protocol Ondansetron HCl 4 mg 03/06/21 17:15 Ondansetron Hcl 4 Mg/2 Ml Vial IVPUSH Q8H PRN Nausea and Vomiting Pharmacy Consult 1 each 03/06/21 15:44 Consult Rx Perform Med Rec MISCELLANE ONCE PRN Consult order Rivaroxaban 20 mg 03/06/21 21:00 03/06/21 23:21 Rivaroxaban 20 Mg Tablet PO 20 mg BEDTIME OTONIEL Administration Sertraline HCl 100 mg 03/06/21 21:00 03/07/21 08:19 Sertraline Hcl 100 Mg Tablet PO 100 mg BID OTONIEL Administration Sodium Chloride 3 ml 03/07/21 00:00 03/07/21 08:13 0.9 % Sodium Chloride Flush 3 Ml Syringe IVFLUSH 3 ml QSHIFT OTONIEL Administration Home Medications Medication Instructions Recorded Confirmed Last Taken Type atorvastatin 1 tab PO DAILY 03/06/21 03/06/21 03/05/21 History furosemide 1 tab PO BID 03/06/21 03/06/21 03/05/21 History metformin 1 tab PO DAILY 03/06/21 03/06/21 03/05/21 History metoprolol succinate 1 tab PO DAILY 03/06/21 03/06/21 03/05/21 History rivaroxaban [Xarelto] 1 tab PO BEDTIME 03/06/21 03/06/21 03/05/21 History sertraline 1 tab PO BID 03/06/21 03/06/21 03/05/21 History Physical Exam Vital Signs: Vital Signs: Last Vital Signs Temp 97.8 F 03/07/21 07:47 Pulse 94 03/07/21 07:47 Resp 16 03/07/21 07:47 BP 143/88 H 03/07/21 07:47 Pulse Ox 96 03/07/21 07:47 Body Mass Index 38.7 Const: General: cooperative, comfortable, no acute distress, alert and awake Nutritional Appearance: obese Orientation/consciousness: patient oriented x3 HENMT: Head: Yes normocephalic, Yes atraumatic and Yes other (Pallor) Neck: Neck: Yes trachea midline, Yes supple and Yes JVD (Mild with abdominal jugular reflux) Chest: Chest palpation & inspection: normal inspection of the chest and other (Well-healed sternotomy scar) Resp: Effort & Inspection: decreased respiratory effort Auscultation: clear to auscultation bilaterally and no rales Cardio: Jugular venous distension: JVD Palpation: normal PMI Rate: regular rate Rhythm: abnormal rhythm Heart sounds: S1 normal heart sound present and S2 normal heart sound present GI: Auscultation: normal bowel sounds Skin: General skin exam: no rashes or lesions noted Neuro: General: patient oriented x3 and no focal motor deficits Extrem: General: No clubbing, No cyanosis and Yes pedal edema Psych: Appearance: grossly normal Results Labs and Meds Result diagrams: 03/07/21 06:21 03/07/21 06:21 Lab results: Laboratory Results - last 24 hr 03/06/21 03/06/21 03/06/21 11:01 11:01 11:01 WBC 6.2 RBC 3.53 L Hgb 8.6 L Hct 29.2 L MCV 82.7 MCH 24.4 L MCHC 29.5 L RDW 17.0 H Plt Count 243 MPV 8.6 L Immature Gran % (Auto) 0.5 H Neut % (Auto) 67.3 Lymph % (Auto) 23.1 [place] % (Auto) 6.7 Eos % (Auto) 2.1 Baso % (Auto) 0.3 Lymph # (Auto) 1.4 [place] # (Auto) 0.4 Eos # (Auto) 0.1 Baso # (Auto) 0.0 Abs Immat Gran (auto) 0.03 Absolute Neuts (auto) 4.1 Absolute Nucleated RBC 0.000 Nucleated RBC % (auto) 0.0 PT 15.3 H INR 1.3 H APTT 36.6 Sodium 142 Potassium 3.4 Chloride 108 Carbon Dioxide 24 Anion Gap 13 BUN 13 Creatinine 0.79 Estim Creat Clear Calc 48.6 Estimated GFR > 60 Random Glucose 127 H Calcium 8.7 Magnesium 1.8 Total Bilirubin 0.5 Direct Bilirubin 0.3 AST 50 H ALT 22 Alkaline Phosphatase 111 Troponin I High Sens B-Natriuretic Peptide Total Protein 7.4 Albumin 3.9 Lipase 11 Urine Color Urine Appearance Urine pH Ur Specific [place] Urine Protein Urine Glucose (UA) Urine Ketones Urine Blood Urine Nitrite Ur Leukocyte Esterase Stool Occult Blood COVID-19 (LILIAN) COVID-19 Clin Com Blood Type Antibody Screen Crossmatch 04/03/06/21 03/06/21 11:01 11:01 11:02 WBC RBC Hgb Hct MCV MCH MCHC RDW Plt Count MPV Immature Gran % (Auto) Neut % (Auto) Lymph % (Auto) [place] % (Auto) Eos % (Auto) Baso % (Auto) Lymph # (Auto) [place] # (Auto) Eos # (Auto) Baso # (Auto) Abs Immat Gran (auto) Absolute Neuts (auto) Absolute Nucleated RBC Nucleated RBC % (auto) PT INR APTT Sodium Potassium Chloride Carbon Dioxide Anion Gap BUN Creatinine Estim Creat Clear Calc Estimated GFR Random Glucose Calcium Magnesium Total Bilirubin Direct Bilirubin AST ALT Alkaline Phosphatase Troponin I High Sens 6.2 B-Natriuretic Peptide 596 H Total Protein Albumin Lipase Urine Color Urine Appearance Urine pH Ur Specific [place] Urine Protein Urine Glucose (UA) Urine Ketones Urine Blood Urine Nitrite Ur Leukocyte Esterase Stool Occult Blood COVID-19 (LILIAN) Negative COVID-19 Clin Com See Note Blood Type O Positive Antibody Screen NEGATIVE Crossmatch See Detail 03/06/21 03/06/21 03/07/21 11:44 19:49 02:51 WBC RBC Hgb Hct MCV MCH MCHC RDW Plt Count MPV Immature Gran % (Auto) Neut % (Auto) Lymph % (Auto) [place] % (Auto) Eos % (Auto) Baso % (Auto) Lymph # (Auto) [place] # (Auto) Eos # (Auto) Baso # (Auto) Abs Immat Gran (auto) Absolute Neuts (auto) Absolute Nucleated RBC Nucleated RBC % (auto) PT INR APTT Sodium Potassium Chloride Carbon Dioxide Anion Gap BUN Creatinine Estim Creat Clear Calc Estimated GFR Random Glucose Calcium Magnesium Total Bilirubin Direct Bilirubin AST ALT Alkaline Phosphatase Troponin I High Sens 7.1 B-Natriuretic Peptide Total Protein Albumin Lipase Urine Color STRAW Urine Appearance CLEAR Urine pH 6.5 Ur Specific [place] 1.010 Urine Protein NEG Urine Glucose (UA) NEG Urine Ketones NEG Urine Blood NEG Urine Nitrite NEG Ur Leukocyte Esterase NEG Stool Occult Blood NEGATIVE COVID-19 (LILIAN) COVID-19 Clin Com Blood Type Antibody Screen Crossmatch 03/07/21 03/07/21 03/07/21 06:21 06:21 06:21 WBC 6.9 RBC 3.91 L Hgb 9.8 L Hct 32.2 L MCV 82.4 MCH 25.1 L MCHC 30.4 L RDW 16.6 H Plt Count 268 MPV 8.7 L Immature Gran % (Auto) 0.3 Neut % (Auto) 64.6 Lymph % (Auto) 25.8 [place] % (Auto) 7.3 Eos % (Auto) 1.7 Baso % (Auto) 0.3 Lymph # (Auto) 1.8 [place] # (Auto) 0.5 Eos # (Auto) 0.1 Baso # (Auto) 0.0 Abs Immat Gran (auto) 0.02 Absolute Neuts (auto) 4.4 Absolute Nucleated RBC 0.000 Nucleated RBC % (auto) 0.0 PT INR APTT Sodium 142 Potassium 3.1 L Chloride 106 Carbon Dioxide 25 Anion Gap 14 BUN 8 L Creatinine 0.71 Estim Creat Clear Calc 54.1 Estimated GFR > 60 Random Glucose 127 H Calcium 9.0 Magnesium Total Bilirubin Direct Bilirubin AST ALT Alkaline Phosphatase Troponin I High Sens B-Natriuretic Peptide 887 H Total Protein Albumin Lipase Urine Color Urine Appearance Urine pH Ur Specific [place] Urine Protein Urine Glucose (UA) Urine Ketones Urine Blood Urine Nitrite Ur Leukocyte Esterase Stool Occult Blood COVID-19 ([facility]ILIAN) COVID-19 Clin Com Blood Type Antibody Screen Crossmatch EKG shows atrial flutter with 3 is to 1 conduction Imaging Radiologist's impression: Impressions Chest X-Ray 03/06/21 10:24 IMPRESSION: Post-CABG changes. Question mild interstitial pulmonary edema. Abdomen/Pelvis CT 03/06/21 12:00 IMPRESSION: Severe diverticulosis of the colon. No evidence of diverticulitis. No rectal mass appreciated by CT scanning. Right renal cyst. Assessment and Plan (1) CHF (congestive heart failure): Qualifiers: Heart failure type: other Qualified Code(s): I50.9 - Heart failure, unspecified Status: Acute New onset congestive heart failure based on biochemical evidence as well as symptoms as well as radiographic evidence of pulmonary edema. Appears not to be significantly fluid overloaded at this point time however BNP has gone up. Will continue 1 more day of IV diuresis with Lasix. Strict intake and output chart needs to be maintained and is very important. Most likely precipitant reason for heart failure appears to be recurrent atrial flutter with loss of AV synchrony and significant anemia contributing to the same. In November she did have similar levels of hemoglobin it did not have any heart failure syndrome. May need eventual rhythm control approach however this is complicated. Will obtain echocardiogram to assess for LV systolic and diastolic function to evaluate for biatrial chamber size as well as RV systolic pressure. Planned to be out of bed to chair and ambulate today. Repeat BMP and BNP tomorrow. Will follow with you. (2) Atrial flutter: Status: Acute Atrial flutter appears to be adequately rate control at this point time. No overt symptoms of palpitation but her heart failure syndrome probably is precipitated by atrial flutter. May need rhythm control approach, however she did have significant bradycardia in the past and given her multiple risk factors may require antiarrhythmic drug support for rhythm control which may lead to bradycardia and need for pacing. This was discussed with her. She was little overwhelmed. For now will continue rate control and improve her clinical situation. She also significantly anemic most likely due to slow GI bleeding in patient with requiring oral anticoagulation therapy. This will need to be addressed and will need workup for GI bleeding. In future may require possible Watchman device placement. Will continue to follow with you.
--- NOTE | 2021-03-07 11:38 | P.PNIM_ITS ---
Subjective Subjective Date of Service: 03/07/21 Interval History: Follow up CHF, anemia. Still feeling tired no shortness of breath Physical Exam Vital Signs: Vital Signs: Last Vital Signs Temp 97.7 F 03/07/21 11:15 Pulse 102 H 03/07/21 11:15 Resp 19 03/07/21 11:15 BP 134/78 03/07/21 11:15 Pulse Ox 92 03/07/21 11:15 Body Mass Index 38.7 Appearing in no acute distress lung sounds are clear to auscultation heart regular IRIR positive bowel sounds, abdomen is soft, nontender neuro patient is alert x3, no focal deficits Objective Data Current Medications Generic Name Dose Route Start Last Admin Trade Name Freq PRN Reason Stop Dose Admin Acetaminophen 650 mg 03/06/21 17:15 03/07/21 06:14 Acetaminophen 325 Mg Tablet PO 650 mg Q6H PRN Administration Pain, Mild (Pain Scale 1-3) Atorvastatin Calcium 80 mg 03/07/21 09:00 03/07/21 08:13 Atorvastatin Calcium 80 Mg Tablet PO 80 mg DAILY OTONIEL Administration Furosemide 20 mg 03/07/21 00:39 03/07/21 08:14 Furosemide 20 Mg/2 Ml Vial IVPUSH 20 mg BID@0900,1800 OTONIEL Administration Protocol Metoprolol Succinate 100 mg 03/07/21 09:00 03/07/21 08:14 Metoprolol Succinate Er 100 Mg Tab.Er.24h PO 100 mg DAILY OTONIEL Administration Protocol Ondansetron HCl 4 mg 03/06/21 17:15 Ondansetron Hcl 4 Mg/2 Ml Vial IVPUSH Q8H PRN Nausea and Vomiting Pharmacy Consult 1 each 03/06/21 15:44 Consult Rx Perform Med Rec MISCELLANE ONCE PRN Consult order Rivaroxaban 20 mg 03/06/21 21:00 03/06/21 23:21 Rivaroxaban 20 Mg Tablet PO 20 mg BEDTIME OTONIEL Administration Sertraline HCl 100 mg 03/06/21 21:00 03/07/21 08:19 Sertraline Hcl 100 Mg Tablet PO 100 mg BID OTONIEL Administration Sodium Chloride 3 ml 03/07/21 00:00 03/07/21 08:13 0.9 % Sodium Chloride Flush 3 Ml Syringe IVFLUSH 3 ml QSHIFT [facility] Administration Labs CBC & Chem 7: 03/07/21 06:21 03/07/21 06:21 Assessment and Plan (1) CHF (congestive heart failure): Status: Acute (2) Atrial flutter: Status: Acute Assessment and Plan: 85-year-old woman admitted with mild CHF and symptomatic anemia. Patient has a history of coronary artery disease with multiple bypasses. Congestive heart failure. Secondary to aflutter, no hx. No recent echocardiogram noted. Mild symptoms, no hypoxia -IV lasix -Cardiology folllowing -Echo pending -Daily weights, BNP -follow I&O Afib/flutter. controlled. -Hold on rhythm control at this time as she has a hx of bradycardia in the past -cardiology following closely and will hold off on cardioversion for now as rate is controlled -BB, hold xarelto due to anemia Symptomatic anemia. Lethargy and dyspnea. Hx CAD. ? Slo bleed. occult negative -PRBC x2. -trend HH -GI consult Hypokalemia. Mild, diuretic use -Repleted -trend BMP CAD. -Continue BB and statin Diabetes. -Sliding scale, ADA diet DVT prophylaxis with Mechanical compression boots due to anemia DISPO: Possible discharge home if medically stable, Also cardiology may decided to do cardioversion while inpatient, but for now HR stable so holding on this. Attending: Dr. Mccray
[2021-03-07] MEDS: Potassium Chloride ER 20 MEQ TAB.ER.PRT 40 MEQ PO (18:02)
[2021-03-07] MEDS: Rivaroxaban 20 MG TABLET PO (20:52)
[2021-03-07 21:02] LABS: Glucose, Whole Blood 131 mg/dL (60-115)
[2021-03-08] VITALS (7 sets, daily range): BP systolic 102–148; BP diastolic 60–98; PULSE 80–101; RESP 16–18; TEMP 36.2–36.4; O2SAT 92–96
[2021-03-08 06:35] LABS: MANUAL DIFF FLAG NO
[2021-03-08 06:59] LABS: Basophils Percent Auto 0.1 % (0-2); Eosinophils Absolute Auto 0.2 X10*3/uL (0.0-0.4); Eosinophils Percent Auto 2.9 % (0-4); Hematocrit 36.8 % (37-47); Hemoglobin 11.5 g/dl (12.0-16.0); Imm Gran Abs Auto 0.03 X10*3/uL (0.00-0.03); Imm Gran Pct Auto 0.4 % (0.0-0.4); Lymphocytes Absolute Auto 1.4 X10*3/uL (1.2-4.9); Lymphocytes Percent Auto 20.9 % (20-40); Mean Corpuscular HGB Conc 31.3 g/dl (31.0-35.0); Mean Corpuscular Hemoglobin 25.4 pg (27.0-33.0); Mean Corpuscular Volume 81.4 fL (80-98); Mean Platelet Volume 9.4 fL (9.4-12.3); Monocytes Absolute Auto 0.5 X10*3/uL (0.1-1.2); Monocytes Percent Auto 7.5 % (2-11); Neutrophils Absolute Auto 4.7 X10*3/uL (2.0-8.3); Neutrophils Percent Auto 68.2 % (45-73); Platelet Count 276 X10*3/uL (160-400); Red Blood Count 4.52 X10*6/uL (4.20-5.50); Red Cell Distribution Width 16.3 % (11.0-16.0); White Blood Count 6.9 X10*3/uL (4.8-10.8)
[2021-03-08 07:27] LABS: B Type Natriuretic Peptide 511 pg/mL (<100)
[2021-03-08 07:48] LABS: Glucose, Whole Blood 124 mg/dL (60-115)
[2021-03-08 08:06] LABS: Anion Gap 14 (12-20); Blood Urea Nitrogen 10 mg/dL (9-16); Calcium 9.1 mg/dL (8.4-10.2); Carbon Dioxide 26 mmol/L (22-29); Chloride 106 mmol/L (96-108); Creatinine Clr Calc Pharmacy 54.1; Estimated Glomerular Filt Rate > 60; Glucose Random 121 mg/dL (60-115); Potassium 3.6 mmol/L (3.3-5.1); Sodium 142 mmol/L (135-145)
[2021-03-08] MEDS: Atorvastatin Calcium 80 MG TABLET PO (08:19)
[2021-03-08] MEDS: Furosemide 20 MG/2 ML VIAL IVPUSH (08:20)
[2021-03-08] MEDS: Metoprolol Succinate ER 100 MG TAB.ER.24H PO (08:20)
--- NOTE | 2021-03-08 08:20 | ECG_ITS ---
Test Reason : CP Blood Pressure : / mmHG Vent. Rate : 083 BPM Atrial Rate : 227 BPM P-R Int : 000 ms QRS Dur : 136 ms QT Int : 446 ms P-R-T Axes : -51 053 -86 degrees QTc Int : 524 ms Atrial flutter with variable A-V block Possible Inferior infarct (cited on or before 29-DEC-2013) T wave abnormality, consider anterolateral ischemia Abnormal ECG When compared with ECG of 06-MAR-2021 10:41, No significant change was found Referred By: Prerna Beaver Electronically Signed By:ALIA OH MD
[2021-03-08 08:50] LABS: Troponin-I High Sensitivity 9.7 ng/L (<3.5-17.0)
[2021-03-08] MEDS: Sertraline HCL 100 MG TABLET PO ×2 (09:40→20:49)
[2021-03-08] MEDS: 0.9 % Sodium Chloride Flush 3 ML SYRINGE IVFLUSH ×2 (09:41→16:21)
--- NOTE | 2021-03-08 10:02 | MHC.CM.PN ---
PATIENT IS FULLY INDEPENDENT WITH HER ADLS. SHE DRIVES WHERE NEEDED. SHE, DAUGHTER, AND GRANDSON SHARE A HOME TOGETHER. SHE WOULD LIKE TO BE ABLE TO RETURN HOME WITH NO SERVICES, BUT DOES NOT FEEL READY TODAY. DAUGHTER (DESTINY) IS HER HCP. COPY REQUESTED. IMM DISCUSSED AND SIGNED COPY 03/08 IS NOW IN CHART.
--- NOTE | 2021-03-08 11:27 | P.PNCA_ITS ---
Subjective Subjective Date of Service: 03/08/21 Principal diagnosis: CHF, atrial flutter Interval history: Patient with persistent recurrent atrial flutter. This jessica ruelasg had some chest pressure, negative troponin, no EKG changes suggestive ischemia. She has had this chest pressure symptoms in the past and in November was admitted to [facility] very ischemic workup was within acceptable limits. She has not been walking since yesterday. She says she does not feel as energetic as before. Review of Systems Constitutional: Reports fatigue, Denies fever(s) and Reports lethargy Cardiovascular: Reports chest pain Respiratory: Reports no additional respiratory complaints Gastrointestinal: Reports no additional gastrointestinal complaints Genitourinary: Reports no additional female genitourinary complaints Musculoskeletal: Reports no additional musculoskeletal complaints Reports system reviewed and no additional complaints, except as documented Psychiatric: Reports no additional psychiatric complaints Endocrine: Reports no additional endocrine complaints and Reports fatigue Physical Exam Vital Signs: Last Vital Signs Temp 97.4 F 03/08/21 07:41 Pulse 91 03/08/21 08:20 Resp 17 03/08/21 07:41 BP 126/81 03/08/21 08:20 Pulse Ox 92 03/08/21 07:41 Body Mass Index 38.7 Const General: cooperative, comfortable, no acute distress, alert and awake Nutritional Appearance: overweight Orientation/consciousness: patient oriented x3 Neck Neck: Yes trachea midline, Yes supple and Yes no JVD Resp Effort & Inspection: normal respiratory effort Auscultation: clear to auscultation bilaterally Cardio Rhythm: abnormal rhythm irregularly irregular Heart sounds: S1 normal heart sound present and S2 normal heart sound present GI Auscultation: normal bowel sounds Skin General skin exam: no rashes or lesions noted Neuro General: patient oriented x3 Extrem General: Yes no clubbing, cyanosis or edema Psych Appearance: grossly normal Results Labs and Meds Result diagrams: 03/08/21 05:57 03/08/21 05:57 Lab results: Laboratory Results - last 24 hr 03/06/21 03/07/21 03/08/21 11:01 20:56 05:57 WBC 6.9 RBC 4.52 Hgb 11.5 L Hct 36.8 L MCV 81.4 MCH 25.4 L MCHC 31.3 RDW 16.3 H Plt Count 276 MPV 9.4 Immature Gran % (Auto) 0.4 Neut % (Auto) 68.2 Lymph % (Auto) 20.9 Fallon % (Auto) 7.5 Eos % (Auto) 2.9 Baso % (Auto) 0.1 Lymph # (Auto) 1.4 Fallon # (Auto) 0.5 Eos # (Auto) 0.2 Baso # (Auto) 0.0 Abs Immat Gran (auto) 0.03 Absolute Neuts (auto) 4.7 Absolute Nucleated RBC 0.000 Nucleated RBC % (auto) 0.0 Sodium Potassium Chloride Carbon Dioxide Anion Gap BUN Creatinine Estim Creat Clear Calc Estimated GFR POC Glucose 131 H Random Glucose Calcium Troponin I High Sens B-Natriuretic Peptide Blood Type O Positive Antibody Screen NEGATIVE Crossmatch See Detail 03/08/21 03/08/21 03/08/21 05:57 05:57 07:42 WBC RBC Hgb Hct MCV MCH MCHC RDW Plt Count MPV Immature Gran % (Auto) Neut % (Auto) Lymph % (Auto) Fallon % (Auto) Eos % (Auto) Baso % (Auto) Lymph # (Auto) Fallon # (Auto) Eos # (Auto) Baso # (Auto) Abs Immat Gran (auto) Absolute Neuts (auto) Absolute Nucleated RBC Nucleated RBC % (auto) Sodium 142 Potassium 3.6 Chloride 106 Carbon Dioxide 26 Anion Gap 14 BUN 10 Creatinine 0.71 Estim Creat Clear Calc 54.1 Estimated GFR > 60 POC Glucose 124 H Random Glucose 121 H Calcium 9.1 Troponin I High Sens 9.7 B-Natriuretic Peptide 511 H Blood Type Antibody Screen Crossmatch Progress Note: A&P Assessment and plan (1) CHF (congestive heart failure): Status: Acute Assessment and Plan: CHF most likely precipitated by persistent recurrent atrial flutter. Patient no t in overt heart failure at current time. Has been diuresed. BNP is down trending. IVC showed normal collapsibility on echocardiogram yesterday. Switch to p.o. Lasix 20 mg daily. I think she would benefit from rhythm control approach, however she is not sure, see below. Continue metoprolol for neurohormonal modulation. Hematocrit is stable and improved. Should get a GI workup as an outpatient. (2) Atrial flutter: Status: Acute Assessment and Plan: Recurrent atrial flutter, persistent, rate controlled. Quite symptomatic most likely to loss of AV synchrony precipitating heart failure syndrome. Clinically appears to be euvolemic, see below. Can switch to p.o. Lasix. Advised to ambulate today. She remains significantly symptomatic with exertional fatigue and shortness of breath, should consider rhythm control approach with synchronized cardioversion. This was discussed with the patient. She is very hesitant and wants to discuss with her daughter. Concern would be post cardioversion bradycardia especially if she requires antiarrhythmic drug therapy to maintain rhythm may require pacing therapy. I just spoke with her daughter in details about this and she thinks that patient would benefit from synchronized cardioversion with talk to her mother about it. Continue full oral anticoagulation as prescribed. Will follow with the patient. Fall Risk Details Current Medications: Current Medications Generic Name Dose Route Start Last Admin Trade Name Freq PRN Reason Stop Dose Admin Acetaminophen 650 mg 03/06/21 17:15 03/07/21 20:58 Acetaminophen 325 Mg Tablet PO 650 mg Q6H PRN Administration Pain, Mild (Pain Scale 1-3) Atorvastatin Calcium 80 mg 03/07/21 09:00 03/08/21 08:19 Atorvastatin Calcium 80 Mg Tablet PO 80 mg DAILY OTONIEL Administration Furosemide 20 mg 03/07/21 00:39 03/08/21 08:20 Furosemide 20 Mg/2 Ml Vial IVPUSH 20 mg BID@0900,1800 OTONIEL Administration Protocol Metoprolol Succinate 100 mg 03/07/21 09:00 03/08/21 08:20 Metoprolol Succinate Er 100 Mg Tab.Er.24h PO 100 mg DAILY OTONIEL Administration Protocol Ondansetron HCl 4 mg 03/06/21 17:15 Ondansetron Hcl 4 Mg/2 Ml Vial IVPUSH Q8H PRN Nausea and Vomiting Pharmacy Consult 1 each 03/06/21 15:44 Consult Rx Perform Med Rec MISCELLANE ONCE PRN Consult order Rivaroxaban 20 mg 03/06/21 21:00 03/07/21 20:52 Rivaroxaban 20 Mg Tablet PO 20 mg BEDTIME OTONIEL Administration Sertraline HCl 100 mg 03/06/21 21:00 03/08/21 09:40 Sertraline Hcl 100 Mg Tablet PO 100 mg BID OTONIEL Administration Sodium Chloride 3 ml 03/07/21 00:00 03/08/21 09:41 0.9 % Sodium Chloride Flush 3 Ml Syringe IVFLUSH 3 ml QSHIFT OTONIEL Administration Time Spent With Patient Time: Total time spent is greater than 50% in coordination of care (as documented) at patient's floor/unit and/or counseling patient: Time with patient: 25 - 35 minutes
[2021-03-08 11:34] LABS: Glucose, Whole Blood 171 mg/dL (60-115)
--- NOTE | 2021-03-08 11:55 | HO.PM.IMPN ---
Subjective Subjective Date of Service: 03/08/21 <SAM Balbuena - Last Filed: 03/08/21 12:26> 03/08/21 <Armando Mccray MD - Last Filed: 03/08/21 13:28> Interval History: follow up for heart failure, aflutter seen and examined this morning not feeling as spry today as yesterday, more fatigued complaining of central chest pressure, palpitations. denies shortness of breath <SAM Balbuena - Last Filed: 03/08/21 12:26> Review of Systems Review of Systems: Yes all other systems are reviewed and are negative <SAM Balbuena - Last Filed: 03/08/21 12:26> Constitutional Constitutional: Denies chills and Denies fever(s) <SAM Balbuena - Last Filed: 03/08/21 12:26> Cardiovascular Cardiovascular: Reports chest pain and Reports palpitations <SAM Balbuena - Last Filed: 03/08/21 12:26> Respiratory Respiratory: Denies cough <SAM Balbuena - Last Filed: 03/08/21 12:26> Gastrointestinal Gastrointestinal: Denies abdominal pain <SAM Balbuena - Last Filed: 03/08/21 12:26> Endocrine Endocrine: Reports palpitations <SAM Balbuena - Last Filed: 03/08/21 12:26> Physical Exam Vital Signs: Vital Signs: Last Vital Signs Temp 97.6 F 03/08/21 11:32 Pulse 80 03/08/21 11:32 Resp 18 03/08/21 11:32 BP 104/67 03/08/21 11:32 Pulse Ox 96 03/08/21 11:32 Body Mass Index 38.7 <SAM Balbuena - Last Filed: 03/08/21 12:26> Const: General: alert and awake <SAM Balbuena Last Filed: 03/08/21 12:26> Nutritional Appearance: overweight <SAM Balbuena - Last Filed: 03/08/21 12:26> Orientation/consciousness: patient oriented x3 <SAM Balbuena - Last Filed: 03/08/21 12:26> HENMT: Head: Yes normocephalic and Yes atraumatic <ASM Balbuena - Last Filed: 03/08/21 12:26> Eyes: Sclerae: sclerae normal <SAM Balbuena - Last Filed: 03/08/21 12:26> Chest: Chest palpation & inspection: normal inspection of the chest <SAM Balbuena - Last Filed: 03/08/21 12:26> Resp: Effort & Inspection: normal respiratory effort and no respiratory distress <SAM Balbuena Last Filed: 03/08/21 12:26> Auscultation: clear to auscultation bilaterally <SAM Balbuena - Last Filed: 03/08/21 12:26> Cardio: Rate: regular rate <SAM Balbuena Last Filed: 03/08/21 12:26> Rhythm: abnormal rhythm (irregular) <SAM Balbuena - Last Filed: 03/08/21 12:26> GI: Palpation (GI): Soft to palpation and nontender <SAM Balbuena - Last Filed: 03/08/21 12:26> Neuro: General: patient oriented x3 <SAM Balbuena - Last Filed: 03/08/21 12:26> Cranial nerves: Yes CN's II-XII intact bilaterally and Yes Bilaterally intact EOM present <SAM Balbuena Last Filed: 03/08/21 12:26> Extrem: General: Yes normal to inspection <SAM Balbuena Last Filed: 03/08/21 12:26> Objective Data Current Medications Generic Name Dose Route Start Last Admin Trade Name Freq PRN Reason Stop Dose Admin Acetaminophen 650 mg 03/06/21 17:15 03/07/21 20:58 Acetaminophen 325 Mg Tablet PO 650 mg Q6H PRN Administration Pain, Mild (Pain Scale 1-3) Atorvastatin Calcium 80 mg 03/07/21 09:00 03/08/21 08:19 Atorvastatin Calcium 80 Mg Tablet PO 80 mg DAILY OTONIEL Administration Furosemide 20 mg 03/07/21 00:39 03/08/21 08:20 Furosemide 20 Mg/2 Ml Vial IVPUSH 20 mg BID@0900,1800 [facility] Administration Protocol Insulin Human Lispro 0 unit 03/08/21 16:30 Insulin Lispro 100 Unit/Ml 3 Ml Vial SUBCUT QIDACHS [facility] Protocol Metoprolol Succinate 100 mg 03/07/21 09:00 03/08/21 08:20 Metoprolol Succinate Er 100 Mg Tab.Er.24h PO 100 mg DAILY OTONIEL Administration Protocol Ondansetron HCl 4 mg 03/06/21 17:15 Ondansetron Hcl 4 Mg/2 Ml Vial IVPUSH Q8H PRN Nausea and Vomiting Pharmacy Consult 1 each 03/06/21 15:44 Consult Rx Perform Med Rec MISCELLANE ONCE PRN Consult order Rivaroxaban 20 mg 03/06/21 21:00 03/07/21 20:52 Rivaroxaban 20 Mg Tablet PO 20 mg BEDTIME OTONIEL Administration Sertraline HCl 100 mg 03/06/21 21:00 03/08/21 09:40 Sertraline Hcl 100 Mg Tablet PO 100 mg BID OTONIEL Administration Sodium Chloride 3 ml 03/07/21 00:00 03/08/21 09:41 0.9 % Sodium Chloride Flush 3 Ml Syringe IVFLUSH 3 ml QSHIFT OTONIEL Administration <SAM Balbuena - Last Filed: 03/08/21 12:26> Labs CBC & Chem 7: : 03/08/21 05:57 03/08/21 05:57 <SAM Balbuena - Last Filed: 03/08/21 12:26> Microbiology Microbiology Results: Microbiology 03/06/21 11:03 Blood - Venous Blood Culture - Preliminary No growth after 24 hours. 03/06/21 11:01 Blood - Venous Blood Culture - Preliminary No growth after 24 hours. <SAM Balbuena - Last Filed: 03/08/21 12:26> Assessment and Plan (1) Atrial flutter: Status: Acute <SAM Balbuena - Last Filed: 03/08/21 12:26> (2) CHF (congestive heart failure): Status: Acute <SAM Balbuena - Last Filed: 03/08/21 12:26> Assessment and Plan: Attending Attestation: Patient seen and examined independently and I was present during singh portion of E/M service. Agree with SAM Estevez's history, physical, assessment, and plan. Acute HFrEF exacerbation, due to now persistent A. Flutter (was in sinus about 2 weeks ago at her own [employer] office). Now has been symptomatic for about the same time. Remains short of breath post improvement in her h/h, indicating her symptoms are secondary to acute CHF. s/p IV diuretics, improvement in her fluid status. will transition to oral diuretic therapy by tomorrow. cardiology also recommended cardioversion -- patient initially hesitant, but now is agreeable. Will keep NPO after midnight. <Armando Mccray MD - Last Filed: 03/08/21 13:28> (3) Anemia: Status: Acute <SAM Balbuena - Last Filed: 03/08/21 12:26> Assessment and Plan: This is an 85-year-old female with a history of CAD s/p CABG, atrial fibrillation on xarelto here with CHF and symptomatic anemia. Afib/flutter. HR controlled, although continues to have chest pain, palpitations, fatigue Seen by cardiology, recommend CV due to symptoms, however pt unsure. plan for am if pt agrees -Continue metoprolol, xarelto HFrEF. Secondary to aflutter, no hx. BNP trending down ECHO showing LVEF 45-50% Switch to PO lasix, 20 mg daily -Cardiology following CAD. complaining of chest pain this am.Likely r/t aflutter EKG with no new changes, trop flat -Continue BB and statin Symptomatic anemia. Lethargy and dyspnea. ? Slow bleed. occult negative s/p PRBC x2 with improvement in H/H. Recommend outpatient GI evaluation Hypokalemia. Resolved Diabetes. -Sliding scale, ADA diet Mood continue zoloft DVT prophylaxis - xarelto DISPO: Home when medically stable Attending: Dr. Mccray <SAM Balbuena - Last Filed: 03/08/21 12:26>
[2021-03-08] MEDS: Insulin Lispro 100 UNIT/ML 3 ML VIAL SUBCUT ×2 (12:17→20:53)
--- NOTE | 2021-03-08 14:45 | MHC.CM.PN ---
PLAN IS FOR CARDIOVERSION TOMORROW MORNING. POSSIBLE RETURN HOME TOMORROW AFTERNOON. CASE MANAGEMENT FOLLOWING
[2021-03-08 16:00] LABS: Glucose, Whole Blood 103 mg/dL (60-115)
[2021-03-08] MEDS: Acetaminophen 325 MG TABLET 650 MG PO (16:20)
[2021-03-08 20:40] LABS: Glucose, Whole Blood 156 mg/dL (60-115)
[2021-03-08] MEDS: Rivaroxaban 20 MG TABLET PO (20:49)
[2021-03-09] VITALS (13 sets, daily range): BP systolic 88–136; BP diastolic 52–77; PULSE 56–91; RESP 16–21; TEMP 36.3–37.1; O2SAT 92–98
[2021-03-09] MEDS: 0.9 % Sodium Chloride Flush 3 ML SYRINGE IVFLUSH ×4 (01:17→20:51)
[2021-03-09 07:06] LABS: Anion Gap 13 (12-20); Blood Urea Nitrogen 14 mg/dL (9-16); Calcium 9.1 mg/dL (8.4-10.2); Carbon Dioxide 26 mmol/L (22-29); Chloride 105 mmol/L (96-108); Creatinine Clr Calc Pharmacy 47.4; Estimated Glomerular Filt Rate > 60; Glucose Random 128 mg/dL (60-115); Potassium 3.9 mmol/L (3.3-5.1); Sodium 140 mmol/L (135-145)
[2021-03-09 08:07] LABS: Glucose, Whole Blood 133 mg/dL (60-115)
[2021-03-09] MEDS: Metoprolol Succinate ER 100 MG TAB.ER.24H PO (08:42)
--- NOTE | 2021-03-09 11:16 | HO.PM.IMPN ---
Subjective Subjective Date of Service: 03/09/21 Interval History: follow up for chf, afib seen and examined this morning feels ok this morning, no overnight events plan for cv this am Review of Systems Review of Systems: Yes all other systems are reviewed and are negative Constitutional Constitutional: Denies chills and Denies fever(s) Respiratory Respiratory: Denies cough Gastrointestinal Gastrointestinal: Denies abdominal pain Physical Exam Vital Signs: Vital Signs: Last Vital Signs Temp 98.5 F 03/09/21 07:04 Pulse 87 03/09/21 08:42 Resp 19 03/09/21 07:04 BP 127/56 L 03/09/21 08:42 Pulse Ox 94 03/09/21 07:04 Body Mass Index 38.7 Const: General: alert and awake Nutritional Appearance: overweight Orientation/consciousness: patient oriented x3 HENMT: Head: Yes normocephalic and Yes atraumatic Eyes: Sclerae: sclerae normal Chest: Chest palpation & inspection: normal inspection of the chest Resp: Effort & Inspection: normal respiratory effort and no respiratory distress Auscultation: clear to auscultation bilaterally Cardio: Rate: regular rate Rhythm: abnormal rhythm (irregular) GI: Palpation (GI): Soft to palpation and nontender Neuro: General: patient oriented x3 Cranial nerves: Yes CN's II-XII intact bilaterally and Yes Bilaterally intact EOM present Extrem: General: Yes normal to inspection Objective Data Current Medications Generic Name Dose Route Start Last Admin Trade Name Freq PRN Reason Stop Dose Admin Acetaminophen 650 mg 03/06/21 17:15 03/08/21 16:20 Acetaminophen 325 Mg Tablet PO 650 mg Q6H PRN Administration Pain, Mild (Pain Scale 1-3) Atorvastatin Calcium 80 mg 03/07/21 09:00 03/08/21 08:19 Atorvastatin Calcium 80 Mg Tablet PO 80 mg DAILY OTONIEL Administration Furosemide 20 mg 03/09/21 09:00 Furosemide 20 Mg Tablet PO DAILY OTONIEL Protocol Insulin Human Lispro 0 unit 03/08/21 16:30 03/09/21 07:32 Insulin Lispro 100 Unit/Ml 3 Ml Vial SUBCUT Not Given QIDACHS OTONIEL Protocol Metoprolol Succinate 100 mg 03/07/21 09:00 03/09/21 08:42 Metoprolol Succinate Er 100 Mg Tab.Er.24h PO 100 mg DAILY OTONIEL Administration Protocol Ondansetron HCl 4 mg 03/06/21 17:15 Ondansetron Hcl 4 Mg/2 Ml Vial IVPUSH Q8H PRN Nausea and Vomiting Pharmacy Consult 1 each 03/06/21 15:44 Consult Rx Perform Med Rec MISCELLANE ONCE PRN Consult order Rivaroxaban 20 mg 03/06/21 21:00 03/08/21 20:49 Rivaroxaban 20 Mg Tablet PO 20 mg BEDTIME OTONIEL Administration Sertraline HCl 100 mg 03/06/21 21:00 03/08/21 20:49 Sertraline Hcl 100 Mg Tablet PO 100 mg BID OTONIEL Administration Sodium Chloride 3 ml 03/07/21 00:00 03/09/21 08:44 0.9 % Sodium Chloride Flush 3 Ml Syringe IVFLUSH 3 ml QSHIFT OTONIEL Administration Labs CBC & Chem 7: 03/08/21 05:57 03/09/21 06:22 Microbiology Microbiology Results: Microbiology 03/06/21 11:03 Blood - Venous Blood Culture - Preliminary No growth after 48 hours. 03/06/21 11:01 Blood - Venous Blood Culture - Preliminary No growth after 48 hours. Assessment and Plan (1) Atrial flutter: Status: Acute (2) CHF (congestive heart failure): Status: Acute (3) Anemia: Status: Acute Assessment and Plan: This is an 85-year-old female with a history of CAD s/p CABG, atrial fibrillation on xarelto here with CHF and symptomatic anemia. Afib/flutter. HR controlled, although continues to have chest pain, palpitations, fatigue Cardiology following, plan for CV today -Continue metoprolol, xarelto HFrEF. Secondary to aflutter, no hx. BNP trending down ECHO showing LVEF 45-50% Continue PO lasix, 20 mg daily -Cardiology following CAD. -Continue BB and statin Symptomatic anemia. s/p PRBC x2 with improvement in H/H. Recommend outpatient GI evaluation Hypokalemia. Resolved Diabetes. -Sliding scale, ADA diet Mood continue zoloft DVT prophylaxis - xarelto DISPO: Home when medically stable Attending: Dr. Mccray
[2021-03-09 11:52] LABS: Glucose, Whole Blood 118 mg/dL (60-115)
--- NOTE | 2021-03-09 12:07 | MHC.CM.PN ---
CARDIOVERT TODAY. PLAN IS TO MONITOR FOR APPROPRIATE DC HOME.
--- NOTE | 2021-03-09 12:37 | HO.ANESPROP2 ---
[facility] Active Problems Active Problems: All Active Problems (Updated 03/07/21 @ 11:22 by Tyler Cameron MD) Atrial flutter (Acute) Anemia (Acute) CHF (congestive heart failure) (Acute) Weakness (Acute) Past Medical History Medical History Atrial fibrillation Coronary artery disease Diabetes mellitus type 1 Hyperlipidemia Hypertension Surgical History Surgical History H/O coronary artery bypass surgery Social History Social History Household Members: Family Housing: House Do you presently have visiting nurse or other home services: No Alcohol intake: never Smoking Status: Former smoker Smoking Quit Date: 60 years ago Use of substances other than those prescribed or required for medical reasons: No Currently Displaying Signs/Symptoms of Drug Intoxication Withdrawal: No Have you been hit, kicked, punched, or otherwise hurt by someone within the past year? If so, by whom?: No Do you feel safe in your current relationship?: No Current Relationship Is there a partner from a previous relationship who is making you feel unsafe now?: No Are you made to feel afraid or neglected: No Advance Directives: No Advance Directives Information Provided: No Do you have thoughts of harming others: None Do you have a plan to hurt others: No Plan Recently lost weight without trying: No service: No Current occupational status: retired Meds Allergies Allergy/AdvReac Type Severity Reaction Status Date / Time aspirin [ASA] Allergy Mild HIVES Verified 03/07/21 15:46 codeine [CODEINE] AdvReac Mild VOMIT Verified 03/07/21 15:46 Active Medications: Current Medications Generic Name Dose Route Start Last Admin Trade Name Freq PRN Reason Stop Dose Admin Acetaminophen 650 mg 03/06/21 17:15 03/08/21 16:20 Acetaminophen 325 Mg Tablet PO 650 mg Q6H PRN Administration Pain, Mild (Pain Scale 1-3) Atorvastatin Calcium 80 mg 03/07/21 09:00 03/08/21 08:19 Atorvastatin Calcium 80 Mg Tablet PO 80 mg DAILY OTONIEL Administration Furosemide 20 mg 03/09/21 09:00 Furosemide 20 Mg Tablet PO DAILY OTONIEL Protocol Insulin Human Lispro 0 unit 03/08/21 16:30 03/09/21 07:32 Insulin Lispro 100 Unit/Ml 3 Ml Vial SUBCUT Not Given QIDAS [facility] Protocol Metoprolol Succinate 100 mg 03/07/21 09:00 03/09/21 08:42 Metoprolol Succinate Er 100 Mg Tab.Er.24h PO 100 mg DAILY OTONIEL Administration Protocol Ondansetron HCl 4 mg 03/06/21 17:15 Ondansetron Hcl 4 Mg/2 Ml Vial IVPUSH Q8H PRN Nausea and Vomiting Pharmacy Consult 1 each 03/06/21 15:44 Consult Rx Perform Med Rec MISCELLANE ONCE PRN Consult order Rivaroxaban 20 mg 03/06/21 21:00 03/08/21 20:49 Rivaroxaban 20 Mg Tablet PO 20 mg BEDTIME OTONIEL Administration Sertraline HCl 100 mg 03/06/21 21:00 03/08/21 20:49 Sertraline Hcl 100 Mg Tablet PO 100 mg BID OTONIEL Administration Sodium Chloride 3 ml 03/07/21 00:00 03/09/21 08:44 0.9 % Sodium Chloride Flush 3 Ml Syringe IVFLUSH 3 ml QSHIFT [facility] Administration Home Medications Medication Instructions Recorded Confirmed Last Taken Type atorvastatin 1 tab PO DAILY 03/06/21 03/06/21 03/05/21 History furosemide 1 tab PO BID 03/06/21 03/06/21 03/05/21 History metformin 1 tab PO DAILY 03/06/21 03/06/21 03/05/21 History metoprolol succinate 1 tab PO DAILY 03/06/21 03/06/21 03/05/21 History rivaroxaban [Xarelto] 1 tab PO BEDTIME 03/06/21 03/06/21 03/05/21 History sertraline 1 tab PO BID 03/06/21 03/06/21 03/05/21 History Exam Exam Date and Time: March 09, 2021 1237 Height,Weight and Vital Signs: Height 4 ft 10 in Weight 84 kg Last Vital Signs Temp 98.8 F 03/09/21 11:22 Pulse 87 03/09/21 11:22 Resp 16 03/09/21 11:22 BP 109/72 03/09/21 11:22 Pulse Ox 95 03/09/21 11:22 Pertinent Lab Results Pertinent Lab Results: Laboratory Tests 0403/06/21 03/06/21 11:01 11:01 11:01 WBC 6.2 RBC 3.53 L Hgb 8.6 L Hct 29.2 L MCV 82.7 MCH 24.4 L MCHC 29.5 L RDW 17.0 H Plt Count 243 MPV 8.6 L Immature Gran % (Auto) 0.5 H Neut % (Auto) 67.3 Lymph % (Auto) 23.1 [place] % (Auto) 6.7 Eos % (Auto) 2.1 Baso % (Auto) 0.3 Lymph # (Auto) 1.4 [place] # (Auto) 0.4 Eos # (Auto) 0.1 Baso # (Auto) 0.0 Abs Immat Gran (auto) 0.03 Absolute Neuts (auto) 4.1 Absolute Nucleated RBC 0.000 Nucleated RBC % (auto) 0.0 PT 15.3 H INR 1.3 H APTT 36.6 Sodium 142 Potassium 3.4 Chloride 108 Carbon Dioxide 24 Anion Gap 13 BUN 13 Creatinine 0.79 Estim Creat Clear Calc 48.6 Estimated GFR > 60 POC Glucose Random Glucose 127 H Calcium 8.7 Magnesium 1.8 Total Bilirubin 0.5 Direct Bilirubin 0.3 AST 50 H ALT 22 Alkaline Phosphatase 111 Troponin I High Sens B-Natriuretic Peptide Total Protein 7.4 Albumin 3.9 Lipase 11 Urine Color Urine Appearance Urine pH Ur Specific [place] Urine Protein Urine Glucose (UA) Urine Ketones Urine Blood Urine Nitrite Ur Leukocyte Esterase Stool Occult Blood COVID-19 ([facility]) COVID-19 Clin Com Blood Type Antibody Screen Crossmatch 03/06/21 03/06/21 03/06/21 11:01 11:01 11:02 WBC RBC Hgb Hct MCV MCH MCHC RDW Plt Count MPV Immature Gran % (Auto) Neut % (Auto) Lymph % (Auto) [place] % (Auto) Eos % (Auto) Baso % (Auto) Lymph # (Auto) [place] # (Auto) Eos # (Auto) Baso # (Auto) Abs Immat Gran (auto) Absolute Neuts (auto) Absolute Nucleated RBC Nucleated RBC % (auto) PT INR APTT Sodium Potassium Chloride Carbon Dioxide Anion Gap BUN Creatinine Estim Creat Clear Calc Estimated GFR POC Glucose Random Glucose Calcium Magnesium Total Bilirubin Direct Bilirubin AST ALT Alkaline Phosphatase Troponin I High Sens 6.2 B-Natriuretic Peptide 596 H Total Protein Albumin Lipase Urine Color Urine Appearance Urine pH Ur Specific [place] Urine Protein Urine Glucose (UA) Urine Ketones Urine Blood Urine Nitrite Ur Leukocyte Esterase Stool Occult Blood COVID-19 ([facility]) Negative COVID-19 Clin Com See Note Blood Type O Positive Antibody Screen NEGATIVE Crossmatch See Detail 03/06/21 03/06/21 03/07/21 11:44 19:49 02:51 WBC RBC Hgb Hct MCV MCH MCHC RDW Plt Count MPV Immature Gran % (Auto) Neut % (Auto) Lymph % (Auto) [place] % (Auto) Eos % (Auto) Baso % (Auto) Lymph # (Auto) [place] # (Auto) Eos # (Auto) Baso # (Auto) Abs Immat Gran (auto) Absolute Neuts (auto) Absolute Nucleated RBC Nucleated RBC % (auto) PT INR APTT Sodium Potassium Chloride Carbon Dioxide Anion Gap BUN Creatinine Estim Creat Clear Calc Estimated GFR POC Glucose Random Glucose Calcium Magnesium Total Bilirubin Direct Bilirubin AST ALT Alkaline Phosphatase Troponin I High Sens 7.1 B-Natriuretic Peptide Total Protein Albumin Lipase Urine Color STRAW Urine Appearance CLEAR Urine pH 6.5 Ur Specific [place] 1.010 Urine Protein NEG Urine Glucose (UA) NEG Urine Ketones NEG Urine Blood NEG Urine Nitrite NEG Ur Leukocyte Esterase NEG Stool Occult Blood NEGATIVE COVID-19 ([facility]) COVID-19 Clin Com Blood Type Antibody Screen Crossmatch 03/07/21 03/07/21 03/07/21 06:21 06:21 06:21 WBC 6.9 RBC 3.91 L Hgb 9.8 L Hct 32.2 L MCV 82.4 MCH 25.1 L MCHC 30.4 L RDW 16.6 H Plt Count 268 MPV 8.7 L Immature Gran % (Auto) 0.3 Neut % (Auto) 64.6 Lymph % (Auto) 25.8 [place] % (Auto) 7.3 Eos % (Auto) 1.7 Baso % (Auto) 0.3 Lymph # (Auto) 1.8 [place] # (Auto) 0.5 Eos # (Auto) 0.1 Baso # (Auto) 0.0 Abs Immat Gran (auto) 0.02 Absolute Neuts (auto) 4.4 Absolute Nucleated RBC 0.000 Nucleated RBC % (auto) 0.0 PT INR APTT Sodium 142 Potassium 3.1 L Chloride 106 Carbon Dioxide 25 Anion Gap 14 BUN 8 L Creatinine 0.71 Estim Creat Clear Calc 54.1 Estimated GFR > 60 POC Glucose Random Glucose 127 H Calcium 9.0 Magnesium Total Bilirubin Direct Bilirubin AST ALT Alkaline Phosphatase Troponin I High Sens B-Natriuretic Peptide 887 H Total Protein Albumin Lipase Urine Color Urine Appearance Urine pH Ur Specific [place] Urine Protein Urine Glucose (UA) Urine Ketones Urine Blood Urine Nitrite Ur Leukocyte Esterase Stool Occult Blood COVID-19 ([facility]) COVID-19 [facility] Blood Type Antibody Screen Crossmatch 03/07/21 03/08/21 03/08/21 20:56 05:57 05:57 WBC 6.9 RBC 4.52 Hgb 11.5 L Hct 36.8 L MCV 81.4 MCH 25.4 L MCHC 31.3 RDW 16.3 H Plt Count 276 MPV 9.4 Immature Gran % (Auto) 0.4 Neut % (Auto) 68.2 Lymph % (Auto) 20.9 [place] % (Auto) 7.5 Eos % (Auto) 2.9 Baso % (Auto) 0.1 Lymph # (Auto) 1.4 [place] # (Auto) 0.5 Eos # (Auto) 0.2 Baso # (Auto) 0.0 Abs Immat Gran (auto) 0.03 Absolute Neuts (auto) 4.7 Absolute Nucleated RBC 0.000 Nucleated RBC % (auto) 0.0 PT INR APTT Sodium Potassium Chloride Carbon Dioxide Anion Gap BUN Creatinine Estim Creat Clear Calc Estimated GFR POC Glucose 131 H Random Glucose Calcium Magnesium Total Bilirubin Direct Bilirubin AST ALT Alkaline Phosphatase Troponin I High Sens 9.7 B-Natriuretic Peptide 511 H Total Protein Albumin Lipase Urine Color Urine Appearance Urine pH Ur Specific [place] Urine Protein Urine Glucose (UA) Urine Ketones Urine Blood Urine Nitrite Ur Leukocyte Esterase Stool Occult Blood COVID-19 ([facility]) COVID-19 [facility] Blood Type Antibody Screen Crossmatch 03/08/21 03/08/21 03/08/21 05:57 07:42 11:25 WBC RBC Hgb Hct MCV MCH MCHC RDW Plt Count MPV Immature Gran % (Auto) Neut % (Auto) Lymph % (Auto) [place] % (Auto) Eos % (Auto) Baso % (Auto) Lymph # (Auto) [place] # (Auto) Eos # (Auto) Baso # (Auto) Abs Immat Gran (auto) Absolute Neuts (auto) Absolute Nucleated RBC Nucleated RBC % (auto) PT INR APTT Sodium 142 Potassium 3.6 Chloride 106 Carbon Dioxide 26 Anion Gap 14 BUN 10 Creatinine 0.71 Estim Creat Clear Calc 54.1 Estimated GFR > 60 POC Glucose 124 H 171 H Random Glucose 121 H Calcium 9.1 Magnesium Total Bilirubin Direct Bilirubin AST ALT Alkaline Phosphatase Troponin I High Sens B-Natriuretic Peptide Total Protein Albumin Lipase Urine Color Urine Appearance Urine pH Ur Specific [place] Urine Protein Urine Glucose (UA) Urine Ketones Urine Blood Urine Nitrite Ur Leukocyte Esterase Stool Occult Blood COVID-19 ([facility]) COVID-19 [facility] Blood Type Antibody Screen Crossmatch 03/08/21 03/08/21 03/09/21 15:51 20:25 06:22 WBC RBC Hgb Hct MCV MCH MCHC RDW Plt Count MPV Immature Gran % (Auto) Neut % (Auto) Lymph % (Auto) [place] % (Auto) Eos % (Auto) Baso % (Auto) Lymph # (Auto) [place] # (Auto) Eos # (Auto) Baso # (Auto) Abs Immat Gran (auto) Absolute Neuts (auto) Absolute Nucleated RBC Nucleated RBC % (auto) PT INR APTT Sodium 140 Potassium 3.9 Chloride 105 Carbon Dioxide 26 Anion Gap 13 BUN 14 Creatinine 0.81 Estim Creat Clear Calc 47.4 Estimated GFR > 60 POC Glucose 103 156 H Random Glucose 128 H Calcium 9.1 Magnesium Total Bilirubin Direct Bilirubin AST ALT Alkaline Phosphatase Troponin I High Sens B-Natriuretic Peptide Total Protein Albumin Lipase Urine Color Urine Appearance Urine pH Ur Specific [place] Urine Protein Urine Glucose (UA) Urine Ketones Urine Blood Urine Nitrite Ur Leukocyte Esterase Stool Occult Blood COVID-19 ([facility]) COVID-19 [employer] [facility] Blood Type Antibody Screen Crossmatch 03/09/21 03/09/21 07:01 11:48 WBC RBC Hgb Hct MCV MCH MCHC RDW Plt Count MPV Immature Gran % (Auto) Neut % (Auto) Lymph % (Auto) [place] % (Auto) Eos % (Auto) Baso % (Auto) Lymph # (Auto) [place] # (Auto) Eos # (Auto) Baso # (Auto) Abs Immat Gran (auto) Absolute Neuts (auto) Absolute Nucleated RBC Nucleated RBC % (auto) PT INR APTT Sodium Potassium Chloride Carbon Dioxide Anion Gap BUN Creatinine Estim Creat Clear Calc Estimated GFR POC Glucose 133 H 118 H Random Glucose Calcium Magnesium Total Bilirubin Direct Bilirubin AST ALT Alkaline Phosphatase Troponin I High Sens B-Natriuretic Peptide Total Protein Albumin Lipase Urine Color Urine Appearance Urine pH Ur Specific [place] Urine Protein Urine Glucose (UA) Urine Ketones Urine Blood Urine Nitrite Ur Leukocyte Esterase Stool Occult Blood COVID-19 ([facility]) COVID-19 Clin Com Blood Type Antibody Screen Crossmatch Airway Mallampati Class: III TM Dist: >3cm Neck ROM: Full Heart: irregular Lungs: CTA
--- NOTE | 2021-03-09 13:20 | HO.POSTANES ---
Post Anesthesia Evaluation Post Anesthesia Evaluation Vital Signs: Vital Signs Temp Pulse Resp BP Pulse Ox 03/09/21 11:22 98.8 F 87 16 109/72 95 03/09/21 08:42 87 127/56 L 03/09/21 07:04 98.5 F 87 19 127/56 L 94 03/09/21 04:00 97.3 F 88 18 123/77 93 Anesthesia: General Mental Status: Awake Pain Control: Satisfactory Nausea/Vomiting: None Hydration: Adequate Anesthesia-Related Issues: No Anes. Related Issues
--- NOTE | 2021-03-09 13:33 | HO.CARDIVERS ---
Cardioversion Procedure Note Cardioversion Date of Procedure: 03/09/2021 Ordering Provider: Myself Performing Provider: Myself Indication for Procedure: Symptomatic atrial flutter, persistent Pre-Op Diagnosis: Same Post-Op Diagnosis: Sinus rhythm Performed with Transesophageal Echo: No History: See history physical and consult for details Consent: Verbal and Written consent was obtained from the patient before starting and confirming use of oral anticoagulation. The patient was made aware of the risk of the procedure as well as benefits, alternatives and 2nd opinion. Procedure: After consent obtained, cardioversion pads were attached in AP configuration and the patient was sedated by the anesthesia team. Once adequate sedation achieved, patient was delivered 200 joules of biphasic synchronized energy in anteroposterior configuration. Complications: None Impression: Patient successfully converted to sinus rhythm Recommendations: 1. 12 lead EKG 2. Overnight monitoring and discharge tomorrow if stable
--- NOTE | 2021-03-09 13:35 | ECG_ITS ---
Test Reason : POST CARDIOVRSION Blood Pressure : / mmHG Vent. Rate : 058 BPM Atrial Rate : 058 BPM P-R Int : 170 ms QRS Dur : 090 ms QT Int : 446 ms P-R-T Axes : 063 047 091 degrees QTc Int : 437 ms Sinus bradycardia Possible Left atrial enlargement Possible Inferior infarct (cited on or before 29-DEC-2013) Cannot rule out Anterior infarct , age undetermined Abnormal ECG When compared with ECG of 08-MAR-2021 07:34, Normal sinus rhythm has replaced atrial flutter Referred By: Tyler Cameron Electronically Signed By:TYLER CAMERON MD
--- NOTE | 2021-03-09 13:35 | PM.PNCARD ---
Subjective Subjective Date of Service: 03/09/21 Principal diagnosis: CHF, atrial flutter Interval history: Patient status post cardioversion. In sinus rhythm. No new symptoms at current time Review of Systems Constitutional: Reports fatigue and Reports lethargy Cardiovascular: Reports no additional cardiovascular complaints Respiratory: Reports no additional respiratory complaints Gastrointestinal: Reports no additional gastrointestinal complaints Genitourinary: Reports no additional female genitourinary complaints Musculoskeletal: Reports no additional musculoskeletal complaints Reports system reviewed and no additional complaints, except as documented Psychiatric: Reports no additional psychiatric complaints Endocrine: Reports fatigue Hematologic/Lymphatic: Reports no additional hematologic/lymphatic complaints Physical Exam Vital Signs: Last Vital Signs Temp 98.7 F 03/09/21 13:19 Pulse 56 03/09/21 13:34 Resp 18 03/09/21 13:34 BP 107/58 L 03/09/21 13:34 Pulse Ox 96 03/09/21 13:34 Body Mass Index 38.7 Const General: cooperative, comfortable, no acute distress, alert, awake and anxious Nutritional Appearance: overweight Orientation/consciousness: patient oriented x3 Neck Neck: Yes trachea midline, Yes supple and Yes no JVD Resp Effort & Inspection: normal respiratory effort Auscultation: clear to auscultation bilaterally Cardio Jugular venous distension: no JVD Palpation: normal PMI Rate: regular rate Rhythm: regular rhythm Heart sounds: S1 normal heart sound present and S2 normal heart sound present Skin General skin exam: no rashes or lesions noted Neuro General: patient oriented x3 and no focal motor deficits Extrem General: Yes no clubbing, cyanosis or edema Psych Appearance: grossly normal Results Labs and Meds Result diagrams: 03/08/21 05:57 03/09/21 06:22 Lab results: Laboratory Results - last 24 hr 03/08/21 03/08/21 03/09/21 15:51 20:25 06:22 Sodium 140 Potassium 3.9 Chloride 105 Carbon Dioxide 26 Anion Gap 13 BUN 14 Creatinine 0.81 Estim Creat Clear Calc 47.4 Estimated GFR > 60 POC Glucose 103 156 H Random Glucose 128 H Calcium 9.1 03/09/21 03/09/21 07:01 11:48 Sodium Potassium Chloride Carbon Dioxide Anion Gap BUN Creatinine Estim Creat Clear Calc Estimated GFR POC Glucose 133 H 118 H Random Glucose Calcium Progress Note: A&P Assessment and plan (1) Atrial flutter: Status: Acute Assessment and Plan: Atrial flutter status post cardioversion. Maintaining sinus rhythm. No need for antiarrhythmic drug therapy at this point time. She has recurrent atrial flutter may consider the same if she becomes significantly symptomatic as she was during this time. Continue full oral anticoagulation, currently on Xarelto. Would as outpatient require aggressive GI workup to evaluate for source of bleeding. If none found consider Watchman device placement. (2) CHF (congestive heart failure): Status: Acute Assessment and Plan: CHF most likely precipitated by atrial flutter. Currently euvolemic and well compensated. Switch to low-dose Lasix therapy 20 mg daily. CHF education to be provided. To maintain sinus rhythm as much as possible. Fall Risk Details Current Medications: Current Medications Generic Name Dose Route Start Last Admin Trade Name Freq PRN Reason Stop Dose Admin Acetaminophen 650 mg 03/06/21 17:15 03/08/21 16:20 Acetaminophen 325 Mg Tablet PO 650 mg Q6H PRN Administration Pain, Mild (Pain Scale 1-3) Atorvastatin Calcium 80 mg 03/07/21 09:00 03/08/21 08:19 Atorvastatin Calcium 80 Mg Tablet PO 80 mg DAILY OTONIEL Administration Furosemide 20 mg 03/09/21 09:00 Furosemide 20 Mg Tablet PO DAILY OTONIEL Protocol Insulin Human Lispro 0 unit 03/08/21 16:30 03/09/21 12:40 Insulin Lispro 100 Unit/Ml 3 Ml Vial SUBCUT Not Given QIDACHS O[facility] Protocol Metoprolol Succinate 100 mg 03/07/21 09:00 03/09/21 08:42 Metoprolol Succinate Er 100 Mg Tab.Er.24h PO 100 mg DAILY OTONIEL Administration Protocol Ondansetron HCl 4 mg 03/06/21 17:15 Ondansetron Hcl 4 Mg/2 Ml Vial IVPUSH Q8H PRN Nausea and Vomiting Pharmacy Consult 1 each 03/06/21 15:44 Consult Rx Perform Med Rec MISCELLANE ONCE PRN Consult order Rivaroxaban 20 mg 03/06/21 21:00 03/08/21 20:49 Rivaroxaban 20 Mg Tablet PO 20 mg BEDTIME OTONIEL Administration Sertraline HCl 100 mg 03/06/21 21:00 03/08/21 20:49 Sertraline Hcl 100 Mg Tablet PO 100 mg BID OTONIEL Administration Sodium Chloride 3 ml 03/07/21 00:00 03/09/21 08:44 0.9 % Sodium Chloride Flush 3 Ml Syringe IVFLUSH 3 ml QSHIFT OTONIEL Administration Time Spent With Patient Time: Total time spent is greater than 50% in coordination of care (as documented) at patient's floor/unit and/or counseling patient: Time with patient: 25 - 35 minutes
[2021-03-09 14:30] LABS: Glucose, Whole Blood 104 mg/dL (60-115)
[2021-03-09] MEDS: Atorvastatin Calcium 80 MG TABLET PO (14:37)
[2021-03-09] MEDS: Furosemide 20 MG TABLET PO (14:37)
[2021-03-09] MEDS: Sertraline HCL 100 MG TABLET PO ×2 (14:38→20:50)
[2021-03-09 16:16] LABS: Glucose, Whole Blood 174 mg/dL (60-115)
[2021-03-09] MEDS: Insulin Lispro 100 UNIT/ML 3 ML VIAL SUBCUT (16:40)
[2021-03-09 20:41] LABS: Glucose, Whole Blood 114 mg/dL (60-115)
[2021-03-09] MEDS: Rivaroxaban 20 MG TABLET PO (20:50)
[2021-03-09] MEDS: ondansetron HCL 4 MG/2 ML VIAL IVPUSH (20:54)
[2021-03-10] VITALS: BP 110/56; PULSE 68; RESP 20; TEMP 36.9; O2SAT 99
[2021-03-10 03:55] VITALS: BP 125/60; PULSE 65; RESP 16; TEMP 36.6; O2SAT 98
[2021-03-10 07:16] VITALS: BP 110/51; PULSE 56; RESP 17; TEMP 36.9; O2SAT 93
[2021-03-10 07:52] LABS: Glucose, Whole Blood 112 mg/dL (60-115)
[2021-03-10 09:50] VITALS: BP 119/61; PULSE 68
[2021-03-10] MEDS: Atorvastatin Calcium 80 MG TABLET PO (09:50)
[2021-03-10] MEDS: Sertraline HCL 100 MG TABLET PO (09:50)
[2021-03-10] MEDS: Furosemide 20 MG TABLET PO (09:50)
[2021-03-10] MEDS: 0.9 % Sodium Chloride Flush 3 ML SYRINGE IVFLUSH (09:50)
[2021-03-10] MEDS: Metoprolol Succinate ER 100 MG TAB.ER.24H PO (09:50)
--- NOTE | 2021-03-10 10:54 | P.DS_ITS ---
DS: Providers Provider Date of Service: 03/10/21 <Samantha Glynn NP - Last Filed: 03/10/21 11:25> 03/11/21 <Hans Land MD - Last Filed: 03/11/21 07:40> Date of admission: 03/06/21 17:15 <Samantha Glynn NP - Last Filed: 03/10/21 11:25> Date of discharge: 03/10/21 <Samantha Glynn NP - Last Filed: 03/10/21 11:25> Primary care physician: Martinez Rosen MD <Samantha Glynn NP - Last Filed: 03/10/21 11:25> Admitting clinician: Samantha Glynn <Samantha Glynn NP - Last Filed: 03/10/21 11:25> Attending physician on admission: Armando Mccray <Samantha Glynn NP - Last Filed: 03/10/21 11:25> Consults: 03/06/21 17:44 Consult to Cardiology Routine Consulting Provider: Tyler Cameron Reason for consultation: CAD, CHF Has provider been notified: No <Samantha Glynn NP - Last Filed: 03/10/21 11:25> Attending physician on discharge: Hans Land <Samantha Glynn NP - Last Filed: 03/10/21 11:25> Discharging clinician: Samantha Glynn <Samantha Glynn NP - Last Filed: 03/10/21 11:25> DS: Diagnosis Discharge Diagnosis (1) Atrial flutter: Status: Acute <Samantha Glynn NP - Last Filed: 03/10/21 11:25> (2) CHF (congestive heart failure): Status: Acute <Samantha Glynn NP - Last Filed: 03/10/21 11:25> DS: Medications Discharge Medications Home Medications: Home Medications Medication Instructions Recorded Confirmed atorvastatin 1 tab PO DAILY 03/06/21 03/06/21 furosemide 1 tab PO BID 03/06/21 03/06/21 metformin 1 tab PO DAILY 03/06/21 03/06/21 metoprolol succinate 1 tab PO DAILY 03/06/21 03/06/21 rivaroxaban [Xarelto] 1 tab PO BEDTIME 03/06/21 03/06/21 sertraline 1 tab PO BID 03/06/21 03/06/21 <Samantha Glynn PERFORMANCE TEST CONSULTANT - Last Filed: 03/10/21 11:25> DS: Summary Hospital Course Hospital Course: 85 year old women presenting with 2 weeks of worsening shortness of breath. She has also been more lethargic and tired. She reports that she normally is very active and as a matter of fact she was swimming at the [facility] today when she felt unwell and 911 was called. She denied fever, chills, nausea, vomiting,diarrhea, recent illness . She did report cough with yellow phlegm and chills ocassionally. She has a history of CAD with multiple bypass surgeries and [place] [facility] [place] She was admitted for chest pain and Bradycardia. She had some abnormalities in her EKG and nuclear stress test was performed and showed no evidence of ischemia. her beta-helen was stopped during the admission and subsequently restarted. She has been on Xarelto and aspirin and there was concern for bleeding. In the ER her hemoglobin was low at 8.6 and 29.2. Hemoglobin and hematocrit from the [facility] admission was 9.1 and 30.2. Stool occult negative. Abdominal CT showed severe diverticulosis without diverticulitis. Chest x-ray showed mild interstitial pulmonary edema. She was not noted to be hypoxic. Blood pressure was mildly elevated 154/71. She was given IV Lasix and half a L of IV fluids. She will be admitted for further management and treatment of symptomatic anemia and mild congestive heart failure. Atrial flutter. History of paroxysmal aflutter. Rate control treatment. Suggestion initially was for rhythm control however metoprolol was continued. Due to continued symptoms, successful synchronized cardioversion was done. She has remained in normal sinus rhythm. Home with xarelto and metoprolol. Heart failure with preserved ejection fraction. New. Secondary to atrial flutter. Not overtly fluid overloaded, elevated BNP noted. Echocardiogram showed EF of 45-50% with mild systolic dysfunction. She was treated with IV Lasix -1.5 L fluid balance after diuresis. Seems euvolemic at this point. Continue oral Lasix at home. Anemia. Required 2 units of packed red blood cell transfusion due to her history of coronary artery disease. Patient did seem to be symptomatic with some lethargy and shortness of breath. Stool guaiac was negative. She should follow-up with her primary care provider if she needs to be referred to adjunct instructor in economics for further workup. Attending: Dr. Land Addendum to documentation by midlevel I saw and examined the patient and participated in the singh portion of the E/M service. I agree with physical finding, assessment and discharge plan by Midlevel. Patient was treated with heart failure and has improved and will b dischared home, I reviewed the plan with patient and she is comfortable with the plan. <Samantha Glynn NP - Last Filed: 03/10/21 11:25> Time Spent with Patient Time attestation: Total time spent providing and/or coordinating discharge services: <Samantha Glynn NP - Last Filed: 03/10/21 11:25> Discharge coordination time: Greater than 30 minutes <Hans Land MD - Last Filed: 03/11/21 07:40> Physical Exam Vital Signs: Vital Signs: Last Vital Signs Temp 98.4 F 03/10/21 07:16 Pulse 68 03/10/21 09:50 Resp 17 03/10/21 07:16 BP 119/61 03/10/21 09:50 Pulse Ox 93 03/10/21 07:16 Body Mass Index 38.7 <Samantha Glynn NP - Last Filed: 03/10/21 11:25> Appearing in no acute distress, tired. head is normocephalic atraumatic eyes pupils are PERRLA sclera is anicteric mouth throat mucous membranes are intact and moist neck is supple no lymphadenopathy, no JVD noted lung sounds are clear to auscultation heart regular rate rhythm positive bowel sounds, abdomen is soft, nontender neuro patient is alert x3, no focal deficits <Samantha Glynn NP - Last Filed: 03/10/21 11:25> DS: Data Data Completed and Pending Labs on day of discharge: Laboratory Results - last 24 hr 03/09/21 03/09/21 03/09/21 11:48 14:25 16:08 POC Glucose 118 H 104 174 H 03/09/21 03/10/21 20:37 07:09 POC Glucose 114 112 Preliminary micro results at discharge 03/06/21 11:03 Blood Culture - Preliminary Blood - Venous No growth after 48 hours. 03/06/21 11:01 Blood Culture - Preliminary Blood - Venous No growth after 48 hours. <Samantha Glynn NP - Last Filed: 03/10/21 11:25> Discharge Plan Discharge Anticipated Discharge Date/Time: 03/10/21 10:30 <Samantha Glynn NP - Last Filed: 03/10/21 11:25> Patient Disposition: Home, Self-Care <Samantha Glynn NP - Last Filed: 03/10/21 11:25> Discharge Diagnosis: Atrial flutter Congestive heart failure <Samantha Glynn NP - Last Filed: 03/10/21 11:25> Atrial flutter Congestive heart failure <Hans Land MD - Last Filed: 03/11/21 07:40> Referrals: Martinez Rosen MD [Primary Care Provider] - 1 Week <Samantha Glynn NP - Last Filed: 03/10/21 11:25> Discharge Medications: New furosemide 20 mg Tablet 40 mg PO DAILY Qty: 60 RF: 0 Continued atorvastatin 80 mg tablet 1 tab PO DAILY RF: 0 metoprolol succinate 100 mg tablet extended release 24 hr 1 tab PO DAILY RF: 0 sertraline 100 mg tablet 1 tab PO BID RF: 0 metformin 1,000 mg tablet 1 tab PO DAILY RF: 0 Xarelto 20 mg tablet 1 tab PO BEDTIME RF: 0 Discontinued furosemide 20 mg tablet 1 tab PO BID RF: 0 <Samantha Glynn NP - Last Filed: 03/10/21 11:25> Discharge Orders: Discharge Order (Routine); Ordered 03/10/21 Ordered By: Samantha Glynn <Samantha Glynn NP - Last Filed: 03/10/21 11:25> Diet: advance to usual diet <Samantha Glynn NP - Last Filed: 03/10/21 11:25> advance to usual diet <Hans Land MD - Last Filed: 03/11/21 07:40> Activity on Discharge: As tolerated <Samantha Glynn NP - Last Filed: 03/10/21 11:25> As tolerated <Hans Land MD - Last Filed: 03/11/21 07:40> Stand Alone Forms: Patient Portal Discharge page <Samantha Glynn NP - Last Filed: 03/10/21 11:25> Care Plan Goals: No episodes of atrial flutter Take medications as prescribed <Samantha Glynn NP - Last Filed: 03/10/21 11:25> Health Concerns: Atrial flutter status post cardioversion Heart failure with preserved ejection fraction Anemia <Samantha Glynn NP - Last Filed: 03/10/21 11:25> Plan of Treatment: Follow up with latin american studies director as needed. Follow up with primary care provider as needed. <Samantha Glynn NP - Last Filed: 03/10/21 11:25> Assessment: See discharge summary <Samantha Glynn NP - Last Filed: 03/10/21 11:25> Discharge Date/Time: 03/10/21 15:45 <Samantha Glynn NP - Last Filed: 03/10/21 11:25>
[2021-03-10 11:35] LABS: Glucose, Whole Blood 182 mg/dL (60-115)
--- NOTE | 2021-03-10 11:35 | MHC.CM.PN ---
PATIENT IS DISCHARGED HOME WITH NO NEED FOR SERVICES. DAUGHTER TO PROVIDE TRANSPORTATION HOME RN AWARE OF PLAN. IMM 03/08 IN CHART.
[2021-03-10] MEDS: Insulin Lispro 100 UNIT/ML 3 ML VIAL SUBCUT (11:52)
--- NOTE | 2021-03-10 11:53 | PM.PNCARD ---
Subjective Subjective Date of Service: 03/10/21 Principal diagnosis: CHF, atrial flutter Interval history: Overnight remained in sinus rhythm. Continues to have symptoms of fatigue. Mostly in bed. Has not walked. She fails that she is still tired Review of Systems Constitutional: Reports fatigue and Reports lethargy Cardiovascular: Reports no additional cardiovascular complaints Respiratory: Reports no additional respiratory complaints Gastrointestinal: Reports no additional gastrointestinal complaints Genitourinary: Reports no additional female genitourinary complaints Reports system reviewed and no additional complaints, except as documented Psychiatric: Reports no additional psychiatric complaints Endocrine: Reports no additional endocrine complaints and Reports fatigue Physical Exam Vital Signs: Last Vital Signs Temp 98.4 F 03/10/21 07:16 Pulse 68 03/10/21 09:50 Resp 17 03/10/21 07:16 BP 119/61 03/10/21 09:50 Pulse Ox 93 03/10/21 07:16 Body Mass Index 38.7 Const General: cooperative, comfortable, no acute distress, alert and awake Nutritional Appearance: overweight Orientation/consciousness: patient oriented x3 Neck Neck: Yes trachea midline, Yes supple and Yes no JVD Resp Effort & Inspection: normal respiratory effort Auscultation: clear to auscultation bilaterally Cardio Jugular venous distension: no JVD Palpation: normal PMI Rate: regular rate Rhythm: regular rhythm Heart sounds: S1 normal heart sound present and S2 normal heart sound present Skin General skin exam: no rashes or lesions noted Neuro General: patient oriented x3 and no focal motor deficits Extrem General: Yes no clubbing, cyanosis or edema Results Labs and Meds Result diagrams: 03/08/21 05:57 03/09/21 06:22 Lab results: Laboratory Results - last 24 hr 03/09/21 03/09/21 03/09/21 14:25 16:08 20:37 POC Glucose 104 174 H 114 03/10/21 03/10/21 07:09 11:23 POC Glucose 112 182 H Progress Note: A&P Assessment and plan (1) Atrial flutter: Status: Acute Assessment and Plan: Atrial flutter status post cardioversion. Still having symptoms of fatigue. There is possibility of mechanical atrial stunning after cardioversion. Discussed with her that it may take 48-72 hours before she has improvement and return of her atrial kick. Advised her to maintain activity level as tolerated. In future if she has recurrent atrial flutter, may require antiarrhythmic drug support to maintain rhythm and/or ablation. Follow up with her application security engineer in 7-10 days. Continue full oral anticoagulation, currently on Xarelto. She remains anemic and this needs to be investigated thoroughly. If she has recurrent anemia thorough GI workup and possible consideration Watchman device should be pursued. (2) CHF (congestive heart failure): Status: Acute Assessment and Plan: CHF, clinically euvolemic. She was diuresed. There was increase in the creatinine. She does not appear to be in florid heart failure due to fluid overload but most likely due to loss of AV synchrony. Can switch her to usual daily Lasix at home, was not 20 b.i.d. at home. Switch to 40 mg daily may not require that much does if she remains in sinus rhythm. Continue follow clinically at home. Daily weight monitoring and avoidance of salt loading was discussed. Blood pressure is otherwise well optimized. Will sign of the case. Patient planned to be discharged home today. Fall Risk Details Current Medications: Current Medications Generic Name Dose Route Start Last Admin Trade Name Freq PRN Reason Stop Dose Admin Acetaminophen 650 mg 03/06/21 17:15 03/08/21 16:20 Acetaminophen 325 Mg Tablet PO 650 mg Q6H PRN Administration Pain, Mild (Pain Scale 1-3) Atorvastatin Calcium 80 mg 03/07/21 09:00 03/10/21 09:50 Atorvastatin Calcium 80 Mg Tablet PO 80 mg DAILY OTONIEL Administration Furosemide 20 mg 03/09/21 09:00 03/10/21 09:50 Furosemide 20 Mg Tablet PO 20 mg DAILY OTONIEL Administration Protocol Insulin Human Lispro 0 unit 03/08/21 16:30 03/10/21 11:52 Insulin Lispro 100 Unit/Ml 3 Ml Vial SUBCUT 2 unit QIDACHS OTONIEL Administration Protocol Metoprolol Succinate 100 mg 03/07/21 09:00 03/10/21 09:50 Metoprolol Succinate Er 100 Mg Tab.Er.24h PO 100 mg DAILY OTONIEL Administration Protocol Ondansetron HCl 4 mg 03/06/21 17:15 03/09/21 20:54 Ondansetron Hcl 4 Mg/2 Ml Vial IVPUSH 4 mg Q8H PRN Administration Nausea and Vomiting Pharmacy Consult 1 each 03/06/21 15:44 Consult Rx Perform Med Rec MISCELLANE ONCE PRN Consult order Rivaroxaban 20 mg 03/06/21 21:00 03/09/21 20:50 Rivaroxaban 20 Mg Tablet PO 20 mg BEDTIME OTONIEL Administration Sertraline HCl 100 mg 03/06/21 21:00 03/10/21 09:50 Sertraline Hcl 100 Mg Tablet PO 100 mg BID OTONIEL Administration Sodium Chloride 3 ml 03/07/21 00:00 03/10/21 09:50 0.9 % Sodium Chloride Flush 3 Ml Syringe IVFLUSH 3 ml QSHIFT OTONIEL Administration Time Spent With Patient Time: Total time spent is greater than 50% in coordination of care (as documented) at patient's floor/unit and/or counseling patient: Time with patient: 25 - 35 minutes
[2021-03-10 12:00] VITALS: BP 135/61; PULSE 58; RESP 18; TEMP 37.1; O2SAT 94
[2021-03-10 13:21] VITALS: O2SAT 95
--- NOTE | 2021-03-11 13:21 | HO.POSTANES ---
Post Anesthesia Evaluation Post Anesthesia Evaluation Anesthesia: General Mental Status: Awake Pain Control: Satisfactory Nausea/Vomiting: None Hydration: Adequate Anesthesia-Related Issues: No Anes. Related Issues
== END 2021-03-10 15:45 | disposition home or self-care (01) | DRG 308 ==
LOC: HO.ED 15:57 → HO.EDOVER 19:39 → HO.S3 03-07 07:14
PROVIDERS: Internal Medicine Cardiovascular Disease; Nurse Practitioner Acute Care; Physician Assistant Medical; Admitting Provider Family Medicine; Emergency Provider Emergency Medicine; PCP Family Medicine; Visit Provider Internal Medicine
PROC: 5A2204Z Restoration of Cardiac Rhythm, Single (ICD-10-PCS; principal; 2021-03-09 12:10)
DX: I48.91 Unspecified atrial fibrillation (principal); I50.31 Acute diastolic (congestive) heart failure; E78.5 Hyperlipidemia, unspecified; I25.10 Atherosclerotic heart disease of native coronary artery without angina pectoris; E87.6 Hypokalemia; D64.9 Anemia, unspecified; F39 Unspecified mood [affective] disorder; Z95.1 Presence of aortocoronary bypass graft; Z20.822 Contact with and (suspected) exposure to COVID-19; Z87.891 Personal history of nicotine dependence; Z79.01 Long term (current) use of anticoagulants; Z79.84 Long term (current) use of oral hypoglycemic drugs; Z79.899 Other long term (current) drug therapy
CPT/HCPCS: 36415; 71045; 74177; 80048; 80076; 81003; 82272; 82947; 83690; 83735; 83880; 84484; 85025; 85610; 85730; 86850; 86900; 86901; 86923; 87040; 87635; 92960; 93005; 93306; 96374; 96375; 99285; J1940; J2405; P9016; Q9967